=== PATIENT | female | born 1970 | race Caucasian/White ===

== ENCOUNTER → 2017-06-23 11:45 | Outpatient (CLI) | payer OTHER, SELFPAY ==
[2017-06-23 13:02] LABS: Hemoglobin A1C 7.6 % (0.0-7.0)
[2017-06-24 08:59] LABS: Alanine Aminotransferase 24 U/L (12-78); Albumin Level 4.4 gm/dL (3.4-5.0); Albumin/Globulin Ratio 1.3 (1.1-1.8); Alkaline Phosphatase 92 U/L (46-116); Anion Gap 15.7 mEq/L (5-15); Aspartate Amino Transferase 7 U/L (15-37); Bilirubin,Total 0.5 mg/dL (0.2-1.0); Blood Urea Nitrogen 21 mg/dL (7-18); Calcium 9.1 mg/dL (8.5-10.1); Carbon Dioxide 25 mmol/L (21.0-32.0); Chloride 102 mmol/L (98-107); Creatinine,Serum 0.94 mg/dL (0.55-1.02); Estimated Glomerular Filt Rate 64 ml/min (>60); GFR (African American) 77 ML/MIN (>60); Globulin 3.3 gm/dl (1.3-3.2); Glucose 191 mg/dL (74-106); Potassium 4.7 mmoL/L (3.5-5.1); Sodium 138 mmol/L (136-145); Total Protein,Serum 7.7 gm/dL (6.4-8.2)
== END ==
PROVIDERS: Visit Provider Internal Medicine Adolescent Medicine
DX: E11.9 Type 2 diabetes mellitus without complications (principal); R60.9 Edema, unspecified
CPT/HCPCS: 36415; 80053; 83036

== ENCOUNTER → 2018-02-19 08:58 | Outpatient (CLI) | payer OTHER, SELFPAY ==
[2018-02-19 11:06] LABS: Creatinine,Urine Random 52 mg/dL (20-320)
[2018-02-19 11:17] LABS: Hemoglobin A1C 6.7 % (0.0-7.0)
[2018-02-19 12:55] LABS: Alanine Aminotransferase 22 U/L (12-78); Albumin Level 3.8 gm/dL (3.4-5.0); Albumin/Globulin Ratio 1.2 (1.1-1.8); Alkaline Phosphatase 78 U/L (46-116); Anion Gap 13.4 mEq/L (5-15); Aspartate Amino Transferase 14 U/L (15-37); Bilirubin,Total 0.6 mg/dL (0.2-1.0); Blood Urea Nitrogen 15 mg/dL (7-18); Calcium 9.3 mg/dL (8.5-10.1); Carbon Dioxide 28 mmol/L (21.0-32.0); Chloride 103 mmol/L (98-107); Chol/HDL Ratio 4.3 (1-3.5); Cholesterol 189 mg/dL (140-200); Creatinine,Serum 0.53 mg/dL (0.55-1.02); Estimated Glomerular Filt Rate 123 ml/min (>60); GFR (African American) 149 ML/MIN (>60); Globulin 3.1 gm/dl (1.3-3.2); Glucose 140 mg/dL (74-106); HDL Cholesterol 44 mg/dL (29-89); LDL Cholesterol 110 mg/dL (0-130); Potassium 4.4 mmoL/L (3.5-5.1); Sodium 140 mmol/L (136-145); Total Protein,Serum 6.9 gm/dL (6.4-8.2); Triglycerides 173 mg/dL (30-200); VLDL Cholesterol 35 mg/dL (0-40)
[2018-02-21 04:56] LABS: Microalbumin, Urine 29.6 ug/mL (Not Estab.)
== END ==
PROVIDERS: Visit Provider Nurse Practitioner Family
DX: E78.5 Hyperlipidemia, unspecified (principal); E11.9 Type 2 diabetes mellitus without complications
CPT/HCPCS: 36415; 80053; 80061; 82043; 82570; 83036

== ENCOUNTER → 2018-04-07 09:45 | Outpatient (CLI) | payer OTHER, SELFPAY ==
[2018-04-08 16:16] LABS: Estradiol 162.2 pg/mL (.); FSH 18.7 mIU/mL (.); LH 24.3 mIU/mL (.)
== END ==
PROVIDERS: Visit Provider Nurse Practitioner Obstetrics & Gynecology
DX: N95.1 Menopausal and female climacteric states (principal)
CPT/HCPCS: 36415; 82670; 83001; 83002

== ENCOUNTER → 2018-09-17 10:12 | Outpatient (CLI) | payer OTHER, SELFPAY ==
[2018-09-17 10:55] LABS: Hemoglobin A1C 7.7 % (0.0-7.0)
== END ==
PROVIDERS: Visit Provider Nurse Practitioner Family
DX: E78.5 Hyperlipidemia, unspecified (principal); E11.9 Type 2 diabetes mellitus without complications; R60.9 Edema, unspecified
CPT/HCPCS: 36415; 83036

== ENCOUNTER → 2019-01-17 11:56 | Outpatient (CLI) | payer OTHER, SELFPAY ==
[2019-01-17 12:38] LABS: Basophils % 0.7 % (0.1-2.0); Eosinophils # 0.1 K/mm3 (0.0-0.4); Eosinophils % 1.1 % (0.1-12.0); Hematocrit 46.1 % (37.0-47.0); Hemoglobin 14.7 g/dL (12.2-16.2); Lymphocytes # 1.5 K/mm3 (0.7-4.5); Lymphocytes % 24.2 % (10-50); Mean Corpuscular HGB Conc 31.8 g/dL (31.8-35.4); Mean Corpuscular Hemoglobin 29.7 pg (27.0-31.2); Mean Corpuscular Volume 93.6 fl (81-99); Mean Platelet Volume 8.2 fl (7.4-10.4); Monocytes # 0.3 K/mm3 (0.1-1.0); Monocytes % 4.8 % (1.7-9.3); Neutrophils # 4.3 K/mm3 (1.8-7.8); Neutrophils % 69.2 % (37.0-80.0); Platelet Count 193 K/mm3 (142-424); Red Blood Count 4.93 M/mm3 (4.20-5.40); Red Cell Distribution Width 13.5 % (11.5-17.5); White Blood Count 6.2 K/mm3 (4.8-10.8)
[2019-01-17 14:38] LABS: Alanine Aminotransferase 16 U/L (12-78); Albumin Level 4.1 gm/dL (3.4-5.0); Albumin/Globulin Ratio 1.2 (1.1-1.8); Alkaline Phosphatase 91 U/L (46-116); Anion Gap 13.4 mEq/L (5-15); Aspartate Amino Transferase 6 U/L (15-37); Bilirubin,Total 0.6 mg/dL (0.2-1.0); Blood Urea Nitrogen 15 mg/dL (7-18); Calcium 9.4 mg/dL (8.5-10.1); Carbon Dioxide 28 mmol/L (21.0-32.0); Chloride 103 mmol/L (98-107); Chol/HDL Ratio 5.3 (1-3.5); Cholesterol 201 mg/dL (140-200); Creatinine,Serum 0.62 mg/dL (0.55-1.02); Estimated Glomerular Filt Rate 102 ml/min (>60); GFR (African American) 124 ML/MIN (>60); Globulin 3.3 gm/dl (1.3-3.2); Glucose 146 mg/dL (74-106); HDL Cholesterol 38 mg/dL (29-89); LDL Cholesterol 126 mg/dL (0-130); Potassium 4.4 mmoL/L (3.5-5.1); Sodium 140 mmol/L (136-145); Thyroid Stimulating Hormone 1.02 uIU/ml (0.358-3.740); Total Protein,Serum 7.4 gm/dL (6.4-8.2); Triglycerides 186 mg/dL (30-200); VLDL Cholesterol 37 mg/dL (0-40)
[2019-01-18 13:27] LABS: Creatinine, Urine 67.8 mg/dL (Not Estab.); Microalbumin, Urine 44.1 ug/mL (Not Estab.)
[2019-01-19 16:38] LABS: Hemoglobin A1C 7.5 % (0.0-7.0)
== END ==
PROVIDERS: Nurse Practitioner Family; Visit Provider Internal Medicine Adolescent Medicine
DX: E78.5 Hyperlipidemia, unspecified (principal); E11.9 Type 2 diabetes mellitus without complications; R60.9 Edema, unspecified; R80.9 Proteinuria, unspecified; Z79.84 Long term (current) use of oral hypoglycemic drugs
CPT/HCPCS: 36415; 80053; 80061; 82043; 82570; 83036; 84443; 85025

== ENCOUNTER → 2019-05-15 13:10 | Outpatient (CLI) | payer OTHER, SELFPAY ==
[2019-05-15 13:57] LABS: Hemoglobin A1C 7.7 % (0.0-7.0)
[2019-05-15 15:05] LABS: Alanine Aminotransferase 13 U/L (12-78); Albumin Level 4.1 gm/dL (3.4-5.0); Albumin/Globulin Ratio 1.4 (1.1-1.8); Alkaline Phosphatase 85 U/L (46-116); Anion Gap 17.3 mEq/L (5-15); Aspartate Amino Transferase 8 U/L (15-37); Bilirubin,Total 0.6 mg/dL (0.2-1.0); Blood Urea Nitrogen 15 mg/dL (7-18); Calcium 9.4 mg/dL (8.5-10.1); Carbon Dioxide 26 mmol/L (21.0-32.0); Chloride 105 mmol/L (98-107); Chol/HDL Ratio 4.6 (1-3.5); Cholesterol 215 mg/dL (140-200); Creatinine,Serum 0.79 mg/dL (0.55-1.02); Estimated Glomerular Filt Rate 77 ml/min (>60); GFR (African American) 94 ML/MIN (>60); Glucose 180 mg/dL (74-106); HDL Cholesterol 47 mg/dL (29-89); LDL Cholesterol 132 mg/dL (0-130); Potassium 4.3 mmoL/L (3.5-5.1); Sodium 144 mmol/L (136-145); Total Protein,Serum 7.1 gm/dL (6.4-8.2); Triglycerides 181 mg/dL (30-200); VLDL Cholesterol 36 mg/dL (0-40)
== END ==
PROVIDERS: Visit Provider Nurse Practitioner Family
DX: E11.29 Type 2 diabetes mellitus with other diabetic kidney complication (principal); E78.5 Hyperlipidemia, unspecified; Z79.84 Long term (current) use of oral hypoglycemic drugs
CPT/HCPCS: 36415; 80053; 80061; 83036

== ENCOUNTER → 2019-11-18 09:54 | Outpatient (CLI) | payer OTHER, SELFPAY ==
[2019-11-18 11:20] LABS: Chloride 105 mmol/L (98-107); Potassium 4.5 mmoL/L (3.5-5.1); Sodium 139 mmol/L (136-145)
[2019-11-18 11:23] LABS: Alanine Aminotransferase 16 U/L (12-78); Albumin Level 4.2 g/dl (3.5-5.0); Albumin/Globulin Ratio 1.8 (1.1-1.8); Alkaline Phosphatase 81 U/L (38-126); Anion Gap 14.5 mEq/L (5-15); Aspartate Amino Transferase 19 U/L (14-36); Bilirubin,Total 0.9 mg/dl (0.2-1.3); Blood Urea Nitrogen 16 mg/dl (7-17); Calcium 9.6 mg/dl (8.4-10.2); Carbon Dioxide 24 mmol/L (22.0-30.0); Cholesterol 112 mg/dl (140-200); Estimated Glomerular Filt Rate 106 ml/min (>60); GFR (African American) 128 ML/MIN (>60); Globulin 2.4 g/dL (1.3-3.2); Glucose 150 mg/dl (74-100); Total Protein,Serum 6.6 g/dl (6.3-8.2); Triglycerides 121 mg/dl (30-150); VLDL Cholesterol 24 mg/dL (0-40)
[2019-11-18 11:24] LABS: Chol/HDL Ratio 2.5 (1-3.5); HDL Cholesterol 45 mg/dl (40-60)
[2019-11-18 11:27] LABS: Basophils % 0.6 % (0.1-2.0); Eosinophils # 0.1 K/mm3 (0.0-0.4); Eosinophils % 1.5 % (0.1-12.0); Hematocrit 43.5 % (37.0-47.0); Hemoglobin 15.3 g/dL (12.2-16.2); Lymphocytes # 1.5 K/mm3 (0.7-4.5); Lymphocytes % 25.8 % (10-50); Mean Corpuscular HGB Conc 35.2 g/dL (31.8-35.4); Mean Corpuscular Hemoglobin 31.3 pg (27.0-31.2); Mean Platelet Volume 8.2 fl (7.4-10.4); Monocytes # 0.2 K/mm3 (0.1-1.0); Monocytes % 4.1 % (1.7-9.3); Neutrophils # 3.9 K/mm3 (1.8-7.8); Neutrophils % 68.1 % (37.0-80.0); Platelet Count 181 K/mm3 (142-424); Red Blood Count 4.89 M/mm3 (4.20-5.40); Red Cell Distribution Width 14.6 % (11.5-17.5); White Blood Count 5.7 K/mm3 (4.8-10.8)
[2019-11-18 11:29] LABS: Creatinine,Urine Random 73 mg/dL (Not Estab.)
[2019-11-18 11:32] LABS: Microalbumin/Creatinine Ratio 62.6
[2019-11-18 11:34] LABS: Direct LDL Cholesterol 50.13 mg/dL (100-129)
[2019-11-18 12:09] LABS: Hemoglobin A1C 7.5 % (4.0-6.0)
== END ==
PROVIDERS: Visit Provider Nurse Practitioner Family
DX: E11.29 Type 2 diabetes mellitus with other diabetic kidney complication (principal); R80.9 Proteinuria, unspecified; Z72.0 Tobacco use; Z79.84 Long term (current) use of oral hypoglycemic drugs
CPT/HCPCS: 36415; 80053; 80061; 82043; 82570; 83036; 85025

== ENCOUNTER → 2019-11-23 11:49 | Outpatient (CLI) | payer OTHER, SELFPAY | PROVIDERS: Visit Provider Nurse Practitioner Family | DX: Z03.818 Encounter for observation for suspected exposure to other biological agents ruled out (principal); J02.9 Acute pharyngitis, unspecified | CPT/HCPCS: U0003 ==

== ENCOUNTER → 2020-07-30 07:14 | Outpatient (CLI) | payer OTHER, SELFPAY ==
[2020-07-30 07:32] LABS: Hemoglobin A1C 8.7 % (4.0-6.0)
== END ==
PROVIDERS: Visit Provider Nurse Practitioner Family
DX: E11.29 Type 2 diabetes mellitus with other diabetic kidney complication (principal); Z79.84 Long term (current) use of oral hypoglycemic drugs
CPT/HCPCS: 36415; 83036

== ENCOUNTER 2020-12-19 06:42 | Emergency (ER) | payer OTHER, SELFPAY ==
[2020-12-19] VITALS (10 sets, daily range): BP systolic 114–150; BP diastolic 65–82; PULSE 78–97; RESP 15–20; TEMP 36.6–37.1; O2SAT 97–100; BMI 30.7
[2020-12-19 07:01] LABS: Influenza A, PCR Not Detected (NotDetected); Influenza B, PCR Not Detected (NotDetected)
--- NOTE | 2020-12-19 07:03 | HMH.EDGENADL ---
ED Disposition Clinical Impression: COVID-19 Disposition: Home, Self-Care Condition on Discharge: Good Referrals: Shashank Bush MD [Primary Care Provider] - - Critical Care Critical Care Time: No Attestation: On , the high probability of a clinically significant, sudden or life threatening deterioration of the following system(s) required my full and direct attention, intervention and personal management. The time I documented below is in addition to time spent performing reported procedures but includes the following listed in this critical care notation. Medical Decision Making - Medical Records Medical records reviewed: Yes: I reviewed the patient's medical records. - Elieser Inquiry Pt receiving controlled substance: No Vital Signs: 12/19/20 06:44 Temperature 98.7 F Temperature Source Oral Pulse Rate [Left Radial] 90 Respiratory Rate 16 Blood Pressure [Right Arm] 125/71 Blood Pressure Mean [Right Arm] 89 Blood Pressure Source [Right Arm] Automatic Cuff Blood Pressure Position [Right Arm] Sitting 02 Sat by Pulse Oximetry 99 Oxygen Delivery Method Room Air - Lab Data Lab Results 12/19/20 06:45: SARS-CoV-2 (PCR) Detected A, Influenza A Untype (PCR) Not detected, Influenza Type B (PCR) Not detected Orders (Tests/Meds): ED MEDICATIONS Discontinued Medications Generic Name Dose Route Start Last Admin Trade Name Freq PRN Reason Stop Dose Admin Ketorolac Tromethamine 30 mg 12/19/20 06:54 12/19/20 07:17 Ketorolac 30mg/Ml Vial IM 12/19/20 06:55 30 mg ONCE ONE Administration Medical Decision Narrative: 50-year-old female who presents with upper respiratory symptoms and a headache with a positive Covid exposure through her . Patient is presenting for a Covid test and treatment for her headache. She was given 30 mg IM Toradol and a rapid Covid test. Vitals are stable she is not hypoxic and not in respiratory distress. Patient is Covid positive. She was given the option of the antibiotic treatment and accepted and will be discharged following this treatment. General Adult HPI - General Stated complaint: sinur congestion,DAVIES,body aches all over Time Seen by Provider: 12/19/20 07:03 Source of Information: Patient Limitations: No Limitations - History of Present Illness HPI narrative: 50-year-old female who presents with headache congestion rhinorrhea, sore throat, productive cough with a who is Covid positive. Patient states she has been symptomatic for 2 days. She is vaccinated against COVID-19. She denies chest pain or shortness of breath. 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 She took 1 tablet of Advil cold and sinus this morning. Headache is mild 4 out of 10. No nausea vomiting or diarrhea. She is fatigued but is having no body aches or fever - Related Data Home Medications Medication Instructions Recorded Confirmed bupropion HCl 150 mg tablet,12 hr 150 mg PO DAILY 03/09/18 01/30/20 sustained-release dapagliflozin 5 mg tablet 5 mg PO DAILY 03/09/18 01/30/20 metformin 500 mg tablet 500 mg PO BID 03/09/18 01/30/20 simvastatin 40 mg tablet 40 mg PO QHS 03/09/18 01/30/20 sitagliptin 100 mg tablet 100 mg PO DAILY 03/09/18 01/30/20 lisinopril 5 mg tablet PO #90 tab 02/15/19 01/30/20 Previous Rx's Medication Instructions Recorded fluconazole 150 mg tablet 150 mg PO DAILY 10 Days #10 tab 02/15/19 terconazole 0.8 % vaginal cream 1 appful VAGINAL QHS 3 Days #20 g 02/15/19 Fluticasone Propionate [Flonase 1 spr NS BID 10 Days #1 bottle 02/18/19 50mcg nasal spray 16gm] methylprednisolone 4 mg tablets in See Rx Instructions PO PER PKG DIR 11/24/19 a dose pack #21 tab doxycycline hyclate 100 mg capsule 100 mg PO BID #20 cap 02/27/20 methylprednisolone 4 mg tablets in See Rx Instructions PO PER PKG DIR 02/27/20 a dose pack #21 tab Allergi
--- NOTE | 2020-12-19 07:08 | PC.NURSE ---
Pt placed in COVID isolation precautions upon arrival
[2020-12-19 07:25] LABS: Coronavirus 19, PCR Detected (NotDetected)
== END 2020-12-19 10:02 | disposition home or self-care (01) ==
PROVIDERS: Emergency Provider Student in an Organized Health Care Education/Training Program; PCP Internal Medicine Adolescent Medicine
DX: U07.1 COVID-19 (principal); F33.1 Major depressive disorder, recurrent, moderate; E11.9 Type 2 diabetes mellitus without complications; E78.5 Hyperlipidemia, unspecified; F17.210 Nicotine dependence, cigarettes, uncomplicated; Z79.899 Other long term (current) drug therapy
CPT/HCPCS: 96365; 96372; 99282; U0003

== ENCOUNTER → 2021-01-13 10:38 | Outpatient (CLI) | payer OTHER, SELFPAY ==
[2021-01-13 11:20] LABS: Basophils # 0.1 K/mm3 (0-0.2); Basophils % 1.1 % (0.1-2.0); Eosinophils # 0.2 K/mm3 (0.0-0.4); Eosinophils % 2.2 % (0.1-12.0); Hematocrit 44.8 % (37.0-47.0); Lymphocytes # 1.7 K/mm3 (0.7-4.5); Lymphocytes % 24.5 % (10-50); Mean Corpuscular HGB Conc 33.4 g/dL (31.8-35.4); Mean Corpuscular Hemoglobin 32.3 pg (27.0-31.2); Mean Corpuscular Volume 96.9 fl (81-99); Mean Platelet Volume 8.6 fl (7.4-10.4); Monocytes # 0.3 K/mm3 (0.1-1.0); Monocytes % 4.7 % (1.7-9.3); Neutrophils # 4.8 K/mm3 (1.8-7.8); Neutrophils % 67.5 % (37.0-80.0); Platelet Count 179 K/mm3 (142-424); Red Blood Count 4.63 M/mm3 (4.20-5.40); Red Cell Distribution Width 13.7 % (11.5-17.5); White Blood Count 7.1 K/mm3 (4.8-10.8)
[2021-01-13 11:47] LABS: Erythrocyte Sedimentation Rate 17 mm/hr (0-30)
[2021-01-13 12:12] LABS: Chloride 110 mmol/L (98-107); Potassium 4.6 mmoL/L (3.5-5.1); Sodium 141 mmol/L (136-145)
[2021-01-13 12:15] LABS: Alanine Aminotransferase 20 U/L (12-78); Albumin Level 3.9 g/dl (3.5-5.0); Albumin/Globulin Ratio 1.6 (1.1-1.8); Alkaline Phosphatase 83 U/L (38-126); Anion Gap 11.6 mEq/L (5-15); Aspartate Amino Transferase 19 U/L (14-36); Bilirubin,Total 0.5 mg/dl (0.2-1.3); Blood Urea Nitrogen 14 mg/dl (7-17); Calcium 9.3 mg/dl (8.4-10.2); Carbon Dioxide 24 mmol/L (22.0-30.0); Estimated Glomerular Filt Rate 88 ml/min (>60); GFR (African American) 107 ML/MIN (>60); Globulin 2.5 g/dL (1.3-3.2); Glucose 161 mg/dl (74-100); Total Protein,Serum 6.4 g/dl (6.3-8.2)
[2021-01-13 12:21] LABS: C-Reactive Protein 0.9 mg/L (0-4)
[2021-01-13 12:52] LABS: Hemoglobin A1C 6.9 % (4.0-6.0)
== END ==
PROVIDERS: Visit Provider Nurse Practitioner Family
DX: E11.29 Type 2 diabetes mellitus with other diabetic kidney complication (principal); R21 Rash and other nonspecific skin eruption; Z79.84 Long term (current) use of oral hypoglycemic drugs
CPT/HCPCS: 36415; 80053; 83036; 85025; 85651; 86140

== ENCOUNTER 2021-01-17 15:20 | Outpatient (CLI) | payer OTHER, SELFPAY ==
[2021-01-17 16:03] VITALS: BP 115/71; PULSE 84; RESP 17; TEMP 36.6; O2SAT 96
== END 2021-01-17 16:04 | disposition home or self-care (01) ==
LOC: INF 15:20
PROVIDERS: PCP Internal Medicine Adolescent Medicine; Visit Provider Obstetrics & Gynecology
DX: R21 Rash and other nonspecific skin eruption (principal)
CPT/HCPCS: 96372; J1040

== ENCOUNTER → 2021-02-26 15:02 | Outpatient (CLI) | payer OTHER, SELFPAY ==
--- NOTE | 2021-02-26 15:04 | XR_ITS ---
PROCEDURE: XR FOOT WT BEARING RT 3V CLINICAL INDICATION: Right 5th toe pain, erythema COMPARISON: No exams were available for comparison FINDINGS: No fracture or dislocation. No lytic or blastic change. There is normal mineralization. The joint spaces are well-preserved. No significant degenerative/arthritic changes. No erosive changes evident. Other findings:Borderline pes planus. Prominent calcaneal spur. IMPRESSION: No acute findings. Borderline pes planus with prominent calcaneal spur Dictated by: Alexandro Joyce MD 02/26/2021 15:32 Alexandro Joyce MD in [place] 02/26/2021 15:32
--- NOTE | 2021-02-26 15:04 | XR_ITS ---
PROCEDURE: XR TOE RT MIN 2V CLINICAL INDICATION: right 5th toe pain, redness COMPARISON: No exams were available for comparison FINDINGS: No fracture or dislocation. No lytic or blastic change. There is normal mineralization. The joint spaces are well-preserved. No significant degenerative/arthritic changes. No erosive changes evident. Other findings:There is mild diffuse soft tissue swelling. No bony destructive process apparent. IMPRESSION: Soft tissue swelling otherwise negative Dictated by: Alexandro Joyce MD 02/26/2021 15:30 Alexandro Joyce MD in [facility] 02/26/2021 15:30
== END ==
PROVIDERS: PCP Internal Medicine Adolescent Medicine; Visit Provider Podiatrist
DX: L03.031 Cellulitis of right toe (principal); S90.424A Blister (nonthermal), right lesser toe(s), initial encounter; M79.674 Pain in right toe(s)
CPT/HCPCS: 73630; 73660

== ENCOUNTER → 2021-04-08 14:24 | Outpatient (POV) | payer OTHER, SELFPAY | PROVIDERS: Visit Provider Dermatology | DX: Z00.00 Encounter for general adult medical examination without abnormal findings (principal) ==

== ENCOUNTER → 2021-06-14 10:10 | Outpatient (CLI) | payer OTHER, SELFPAY ==
[2021-06-14 11:33] LABS: Chloride 106 mmol/L (98-107); Potassium 4.6 mmoL/L (3.5-5.1); Sodium 138 mmol/L (136-145)
[2021-06-14 11:36] LABS: Alanine Aminotransferase 29 U/L (12-78); Albumin Level 4.3 g/dl (3.5-5.0); Alkaline Phosphatase 88 U/L (38-126); Anion Gap 10.6 mEq/L (5-15); Aspartate Amino Transferase 25 U/L (14-36); Bilirubin,Total 1.1 mg/dl (0.2-1.3); Blood Urea Nitrogen 15 mg/dl (7-17); Calcium 8.9 mg/dl (8.4-10.2); Carbon Dioxide 26 mmol/L (22.0-30.0); Chol/HDL Ratio 2.1 (1-3.5); Cholesterol 94 mg/dl (140-200); Estimated Glomerular Filt Rate 105 ml/min (>60); GFR (African American) 127 ML/MIN (>60); Globulin 2.2 g/dL (1.3-3.2); Glucose 127 mg/dl (74-100); HDL Cholesterol 45 mg/dl (40-60); Total Protein,Serum 6.5 g/dl (6.3-8.2); Triglycerides 76 mg/dl (30-150); VLDL Cholesterol 15 mg/dL (0-40)
[2021-06-14 11:47] LABS: Direct LDL Cholesterol 36.63 mg/dL (100-129)
[2021-06-14 11:49] LABS: Hemoglobin A1C 7.5 % (4.0-6.0)
[2021-06-14 14:08] LABS: Microalbumin/Creatinine Ratio 50.3
[2021-06-14 14:09] LABS: Creatinine,Urine Random 57 mg/dL (Not Estab.)
== END ==
PROVIDERS: PCP Internal Medicine Adolescent Medicine; Referring Provider Nurse Practitioner Family; Visit Provider Internal Medicine Adolescent Medicine
DX: E11.29 Type 2 diabetes mellitus with other diabetic kidney complication (principal); E78.5 Hyperlipidemia, unspecified; R80.9 Proteinuria, unspecified; Z79.84 Long term (current) use of oral hypoglycemic drugs
CPT/HCPCS: 36415; 80053; 80061; 82043; 82570; 83036

== ENCOUNTER → 2021-07-01 09:39 | Outpatient (CLI) | payer OTHER, SELFPAY ==
--- NOTE | 2021-07-01 09:41 | MM_ITS ---
PROCEDURE INFORMATION: Exam: MG Bilateral Screening 3D Mammography Exam date and time: 07/01/2021 9:41 AM Age: 51 years old Clinical indication: Encounter for screening mammogram for malignant neoplasm of breast TECHNIQUE: Imaging protocol: Bilateral Screening tomosynthesis and 2D mammography including computer-aided detection (CAD) when performed. COMPARISON: 1. MG DMSB DIG MAMM-SCREEN JANNET 05/23/2015 3:15 PM 2. MG DMDXUAVR DIG MAMM-DX UNIL ADD VIEWS-RT 04/28/2012 3:15 PM FINDINGS: MAMMOGRAPHY: Breast composition: The breast tissue is composed of scattered areas of fibroglandular density. Mass: None. Architectural distortion: None. Calcifications: No suspicious calcifications. Asymmetric density: None. Skin thickening: None. Axillary adenopathy: None. IMPRESSION: No mammographic evidence of malignancy. Annual screening is recommended unless otherwise clinically indicated. ASSESSMENT: BI-RADS Category 1: Negative
--- NOTE | 2021-07-01 15:22 | CT_ITS ---
FINAL REPORT CLINICAL HISTORY: PERSONNAL HISTORY OF TABACCO USE FINDINGS: Low-Dose Chest CT CTDI vol (mGy): 2.90 DLP (mGy-cm): 90.38 Axial images were obtained from the lung apex to the mid abdomen by computed tomography. Low-dose protocol was utilized. FINDINGS: CHEST: There is no axillary adenopathy. There is no hilar or mediastinal adenopathy. The heart is proper size. There are moderate to severe coronary artery calcifications. There is no pericardial or pleural effusion. Limited images of the upper abdomen demonstrate postoperative changes from cholecystectomy.. Lung window images demonstrate no suspicious infiltrate or nodule. IMPRESSION: S modifier: Moderate to severe coronary artery calcification. No suspicious infiltrate or nodule is identified. Lung RADS category 1S. Recommend 12 month follow-up low-dose chest CT. Reviewed, Interpreted and Dictated by Kehinde Murray III, MD Transcribed by Miriam Biggs Authenticated by Kehinde Murray III, MD on 07/01/2021 04:41:32 PM [facility]
== END ==
PROVIDERS: PCP Internal Medicine Adolescent Medicine; Visit Provider Nurse Practitioner Family
DX: Z87.891 Personal history of nicotine dependence (principal); Z12.2 Encounter for screening for malignant neoplasm of respiratory organs; Z12.31 Encounter for screening mammogram for malignant neoplasm of breast
CPT/HCPCS: 71271; 77063; 77067

== ENCOUNTER → 2021-07-17 06:15 | Outpatient (CLI) | payer OTHER, SELFPAY ==
--- NOTE | 2021-07-17 | CA_ITS ---
APPROVED REPORT Exam: Pharmacologic Technologist: Rosalina Rodriguez, Ht: 5 ft 6 in Wt: 189 lbs BSA: 1.95 m2 HR: 79 bpm BP: 115/74 mmHg Rhythm: NSR, RIGHTWARD AXIS Medical History Medical History: Hyperlipidemia, Diabetes Medications: Metformin,,,,, Flonase,,,,, Crestor,,,,, Farxiga,,,,, Ozempic,,,,, WELLBUTRINE,,,,, Allergies: No known drug allergies Cardiac Risk Factors: Hyperlipidemia, Diabetes Stress Test Details Test: LEXISCAN HR Resting HR: 80 bpm Max Heart Rate (APMHR): 168.382294 bpm Max HR Achieved: 106 bpm Target HR (85% APMHR): 142.230995 bpm % of APMHR: 63.10 Recovery HR: 89 bpm BP Resting BP: 115.0/74.0 mmHg Max BP: 138.0/77.0 mmHg Recovery BP: 130.0/71.0 mmHg ECG Resting ECG: NSR, RIGHTWARD AXIS Clinical Exercise duration: 04:01 min Highest Stage Achieved: Exercise capacity: 1.0 METs Stress ECG Conclusion SOA, HEAD DISCOMFORT. NO CP. NO SIGNIFICANT CHANGES. UNREMARKABLE LEXISCAN MYOVIEW IMAGES REPORTED SEPARATELY Test Summary REST 04:27 . . 80 . 115/ 74 . . Stage 1 01:00 . . 104 . . . . Stage 2 01:00 . . 102 . 136/ 80 . . Stage 3 01:00 . . 97 . 138/ 77 . . Stage 4 01:00 . . 93 . 124/ 74 . . Stage 4 01:01 . . 93 . 124/ 74 . Stop exercise at 04:01 RECOVERY 01:00 . . 95 . . . . RECOVERY 02:00 . . 93 . 126/ 73 . . RECOVERY 03:00 . . 89 . 130/ 71 . . RECOVERY 03:14 . . 92 . 130/ 71 . . Electronically signed by : Andrzej Hernandez MD 07/18/2021 13:24:06
--- NOTE | 2021-07-17 06:46 | NM_ITS ---
APPROVED REPORT Exam: Nuclear Stress Test Indication: fatigue Patient Location: Outpatient Stress Tech: Rosalina Rodriguez ND Tech:Ivett BarnesNEETA RT(R)(N) Ht: 5 ft 6 in Wt: 189 lbs Bra Size: 42c HR: 79 bpm BP: 115/74 mmHg BSA: 1.95 m2 BMI: 30.5 Procedure: Patient received a 0.4 mg of intravenous Lexiscan, resting heart rate 79 bpm, resting blood pressure 115/74 mmHg, with Lexiscan maximum heart rate achived was 104 bpm which is Less than 85 % of the maximum predicted heart rate and blood pressure was 136/80 mmHg. With Lexiscan, patient denied any complaint of chest pain. Electrocardiogram Resting electrocardiogram shows sinus rhythm, with Lexiscan there is less than 1.[address] segment depression noted from the baseline EKG. The EKG portion of the Lexiscan is nondiagnostic. Cardiac Stress and Resting SPECT Images: Cardiac Stress and Resting SPECT images were obtained using technetium 99m Myoview 31.1 mCi stress and 10.95 mCi at rest. Gated SPECT for analysis of segmental wall motion and calculation of the ejection fraction also done. Cardiac stress and resting SPECT images show uniform myocardial activity without segmental perfusion abnormality, computer derived ejection fraction is 56% with no regional wall motion abnormality, right ventricle is normal size and contractility. Conclusion: 1. The EKG portion of the Lexiscan Myoview is nondiagnostic. 2. No scintigraphic evidence of reversible ischemia seen, computer ejection fraction 56% with no regional wall motion abnormality, right ventricle is normal size and contractility. 3. Normal Lexiscan Myoview study. Electronically signed by : Andrzej Hernandez MD 07/18/2021 13:26:02
== END ==
PROVIDERS: PCP Internal Medicine Adolescent Medicine; Visit Provider Nurse Practitioner Family
DX: I25.10 Atherosclerotic heart disease of native coronary artery without angina pectoris (principal)
CPT/HCPCS: 78452; 93017; A9502; J2785

== ENCOUNTER 2021-10-15 07:59 | Emergency (ER) | payer OTHER, SELFPAY ==
[2021-10-15 08:05] VITALS: BP 119/68; PULSE 91; RESP 18; TEMP 36.8; O2SAT 98; BMI 30.9
[2021-10-15 08:18] VITALS: BP 119/68; PULSE 91; RESP 18; TEMP 36.8; O2SAT 98
--- NOTE | 2021-10-15 08:24 | HMH.EDUTC ---
[facility] [place] Clinical Impression: COVID-19 Disposition: Home, Self-Care Condition on Discharge: Good Instructions: DI for COVID-19 (Suspected or Confirmed ), Preventing the Spread of Coronavirus Discharge Instructions Additional Instructions: *Monitor Temp, Over the counter Motrin or Tylenol as directed/as needed Tylenol every 4 hours and Motrin every 6 hours (as long as your family doctor has told you that you can take it) for fever or pain. and straight to ER if unable to lower temp less than 101.0 after medication given *Warm salt water gargles may help to soothe the throat *Throat Lozenges *Warm fluids like tea with honey may help to soothe the throat *Sleep elevated *Humidifier/Vaporizer *Flonase 2 sprays in each nostril daily but be aware that it may take 2-3 days before you notice improvement *Bromfed may cause drowsiness. Know how it effects you (your child) before driving, caring for small child, or sending your child to school. Not other antihistamines/allergy medications while taking bromfed Your throat swab was sent for culture. Those results are typically sent to your primary care. Be sure to follow up in 2-3 days with your family doctor/primary care physician if no improvement so they can review those result and treat if necessary. If you don?t have a primary care doctor, I recommend you get one but in the mean time, you will have to return to a walk in clinic Follow up IMMEDIATELY for new or worsening symptoms or no Noticeable improvement over the next 48-72 hours. 911 for difficulty breathing or swallowing Make sure to take your Vitamins Vit. C Vit D and Zinc if you can take them Prescriptions: Benzonatate [Benzonatate 100mg cap] 100 mg PO Q8HP PRN #30 cap PRN Reason: Cough Transmission Status: Received by [facility] Azithromycin [Z-Shalom 250mg Tab] 250 mg PO DIRECTED #6 tab Transmission Status: Received by [facility] Referrals: Rossana Charles APRN [Primary Care Provider] - As needed Forms: Work/School Release Time of Disposition: 09:39 Medical Decision Making - Elieser Inquiry Pt receiving controlled substance: No Elieser was queried for this patient: No Vital Signs: 10/15/21 08:05 10/15/21 08:18 Temperature 98.3 F 98.3 F Temperature Source Oral Pulse Rate 91 H Pulse Rate [Left Brachial] 91 H Respiratory Rate 18 18 Blood Pressure 119/68 Blood Pressure [Left Arm] 119/68 Blood Pressure Mean [Left Arm] 85 Blood Pressure Source [Left Arm] Automatic Cuff Blood Pressure Position [Left Arm] Sitting 02 Sat by Pulse Oximetry 98 Oxygen Delivery Method Room Air - Lab Data Lab results reviewed: Yes: I reviewed the patient's lab results. Lab Results 10/15/21 08:10: Group A Strep Rapid Negative 10/15/21 08:10: SARS-CoV-2 (PCR) Detected A, Influenza A Untype (PCR) Not detected, Influenza Type B (PCR) Not detected Orders (Tests/Meds): ORDERS Category Date Time Status Strep Screen Confirmation Stat Micro 10/15/21 08:10 Received Medical Decision Narrative: Patient still awaiting rapid flu and COVID test results [facility] [place] - General Stated complaint: runny nose, cough, bodyaches Time Seen by Provider: 10/15/21 08:24 Mode of Arrival: Ambulatory Source of Information: Patient Limitations: No Limitations Description of Symptoms (Recalled from Triage Doc. by RN): PATIENT C/O COUGH, BODY ACHES, HEADACHE, AND SORE THROAT SINCE YESTERDAY HEENT Symptoms (Recalled from RN notes): Yes Resp Symptoms (Recalled from RN notes): Yes Skin Symptoms (Recalled from RN notes): No MS Symptoms (Recalled from RN notes): No Functional Status (Recalled from RN notes): WNL - History of Present Illness Provider Complaint: Patient states that she started feeling bad yesterday States that she has been having sore throat, headache, body aches and chills and cough States that she was concerned with COVID denies known exposure States that at times she is coughing up so
[2021-10-15 08:43] LABS: Influenza A, PCR Not Detected (NotDetected); Influenza B, PCR Not Detected (NotDetected)
--- NOTE | 2021-10-15 08:49 | PC.NURSE ---
SPOKE WITH LAB REGARDING APPROX WAIT TIME FOR COVID TEST. STATED IT WILL BE APPROX 45 MINUTES. 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 SHE STATES IT IS OK THAT SHE WAITS FOR HERE FOR HER RESULTS. PATIENT GIVEN A BLANKET AND OFFERED WATER.
[2021-10-15 08:54] LABS: Strep Scrn Group A (Rapid) Negative (Negative)
[2021-10-15 09:28] LABS: Coronavirus 19, PCR Detected (NotDetected)
== END 2021-10-15 08:42 | disposition home or self-care (01) ==
PROVIDERS: Emergency Provider Nurse Practitioner; PCP Nurse Practitioner Family
DX: U07.1 COVID-19 (principal); R05.9 Cough, unspecified; R52 Pain, unspecified; R51.9 Headache, unspecified
CPT/HCPCS: 87430; 99212; C9803; G0463; U0003; U0005

== ENCOUNTER → 2022-06-03 07:02 | Outpatient (CLI) | payer OTHER, SELFPAY ==
--- NOTE | 2022-06-03 07:03 | CT_ITS ---
FINAL REPORT CLINICAL HISTORY: sinus pressure/right parotid growth FINDINGS: There is mucoperiosteal thickening of the sphenoid sinuses and right ethmoid air cells. The remaining paranasal sinuses are clear. The maxillary infundibulum are intact bilaterally. There is mild left nasal septal deviation. There is qing bullosa of the left middle turbinate. The mastoid air cells are intact. No acute osseous abnormality is identified. There is a soft tissue nodule in the anterior right parotid measuring 9 mm, could represent an intraparotid lymph node or salivary gland neoplasm. IMPRESSION: Sphenoid sinus and right ethmoid sinusitis, likely chronic. Soft tissue nodule in the anterior right parotid, could represent intraparotid lymph node or salivary gland neoplasm. Reviewed, Interpreted and Dictated by Kandis Jacobson MD Transcribed by Debbie De León Authenticated and [facility]
== END ==
PROVIDERS: PCP Nurse Practitioner Family; Visit Provider Otolaryngology
DX: J32.9 Chronic sinusitis, unspecified (principal)
CPT/HCPCS: 70486

== ENCOUNTER → 2022-06-12 07:50 | Outpatient (CLI) | payer OTHER, SELFPAY ==
--- NOTE | 2022-06-12 07:51 | US_ITS ---
FINAL REPORT CLINICAL HISTORY: .rt parotid fna-- nito valdez-- path present FINDINGS: Ultrasound guided right parotid nodule biopsy. HISTORY: Right parotid nodule PROCEDURE: After informed consent was obtained and a time-out was performed, the patient was prepped and draped in usual sterile fashion over the right parotid region. Utilizing local anesthesia and sterile technique with a 25-gauge needle, access to the nodule was obtained. 6 fine needle passes were made. The pathologist indicated the specimens were adequate for diagnostic purposes. The patient received no conscious sedation. The patient tolerated procedure well and left the department in good condition. IMPRESSION: Status post ultrasound guided biopsy of a right parotid nodule without immediate complication. Films reviewed , interpreted and dictated by Dr. Murray Transcribed by Nito Valdez PA-C. Reviewed, Interpreted and Dictated by Kehinde Murray III, MD Transcribed by GUDELIA Marie Authenticated and [facility]
== END ==
PROVIDERS: PCP Nurse Practitioner Family; Visit Provider Otolaryngology
DX: K11.8 Other diseases of salivary glands (principal)
CPT/HCPCS: 10005

== ENCOUNTER → 2022-07-27 09:35 | Outpatient (CLI) | payer OTHER, SELFPAY ==
--- NOTE | 2022-07-27 09:50 | MM_ITS ---
PROCEDURE INFORMATION: Exam: MG Bilateral Screening 3D Mammography Exam date and time: 07/27/2022 1:31 PM Age: 52 years old Clinical indication: Screening mammogram TECHNIQUE: Imaging protocol: Bilateral Screening tomosynthesis and 2D mammography including computer-aided detection (CAD) when performed. COMPARISON: 1. MG MM DIG SCREENING MAMM BI W/CAD 07/01/2021 9:38 AM 2. MG DMSB DIG MAMM-SCREEN JANNET 05/23/2015 3:15 PM 3. MG DMDXUAVR DIG MAMM-DX UNIL ADD VIEWS-RT 04/28/2012 3:15 PM 4. MG DMSB DIGITAL MAMM-SCREEN BILATERAL 04/13/2012 8:47 AM FINDINGS: MAMMOGRAPHY: Breast composition: There are scattered areas of fibroglandular density. Mass: None. Architectural distortion: No new or suspicious architectural distortion. Calcifications: No new or suspicious calcifications are present Asymmetric density: No new or suspicious asymmetric density is present Skin thickening: None. Axillary adenopathy: None. IMPRESSION: No mammographic evidence of malignancy. Recommend annual screening mammography unless otherwise clinically indicated. ASSESSMENT: BI-RADS category 1: Negative
== END ==
PROVIDERS: PCP Nurse Practitioner Family; Visit Provider Nurse Practitioner Family
DX: Z12.31 Encounter for screening mammogram for malignant neoplasm of breast (principal)
CPT/HCPCS: 77063; 77067

== ENCOUNTER → 2022-08-07 07:31 | Outpatient (CLI) | payer OTHER, SELFPAY ==
[2022-08-07 08:51] LABS: Basophils # 0.1 K/mm3 (0-0.2); Basophils % 1.5 % (0.1-2.0); Eosinophils # 0.1 K/mm3 (0.0-0.4); Eosinophils % 1.2 % (0.1-12.0); Hematocrit 44.1 % (37.0-47.0); Hemoglobin 14.6 g/dL (12.2-16.2); Lymphocytes # 1.6 K/mm3 (0.7-4.5); Lymphocytes % 27.7 % (10-50); Mean Corpuscular HGB Conc 33.1 g/dL (31.8-35.4); Mean Corpuscular Hemoglobin 29.8 pg (27.0-31.2); Mean Platelet Volume 8.6 fl (7.4-10.4); Monocytes # 0.3 K/mm3 (0.1-1.0); Monocytes % 5.2 % (1.7-9.3); Neutrophils # 3.6 K/mm3 (1.8-7.8); Neutrophils % 64.4 % (37.0-80.0); Platelet Count 185 K/mm3 (142-424); Red Cell Distribution Width 14.2 % (11.5-17.5); White Blood Count 5.7 K/mm3 (4.8-10.8)
[2022-08-07 09:01] LABS: Creatinine,Urine Random 51 mg/dL (Not Estab.)
[2022-08-07 09:03] LABS: Microalbumin/Creatinine Ratio 29.2
[2022-08-07 09:13] LABS: Alanine Aminotransferase 27 U/L (12-78); Albumin Level 4.1 g/dl (3.5-5.0); Albumin/Globulin Ratio 1.9 (1.1-1.8); Alkaline Phosphatase 97 U/L (38-126); Anion Gap 12.4 mEq/L (5-15); Aspartate Amino Transferase 25 U/L (14-36); Bilirubin,Total 0.9 mg/dl (0.2-1.3); Blood Urea Nitrogen 15 mg/dl (7-17); Calcium 9.3 mg/dl (8.4-10.2); Carbon Dioxide 29 mmol/L (22.0-30.0); Chloride 103 mmol/L (98-107); Chol/HDL Ratio 2.3 (1-3.5); Cholesterol 96 mg/dl (140-200); Estimated Glomerular Filt Rate 129 ml/min (>60); GFR (African American) 156 ML/MIN (>60); Globulin 2.2 g/dL (1.3-3.2); Glucose 153 mg/dl (74-100); HDL Cholesterol 41 mg/dl (40-60); Potassium 4.4 mmoL/L (3.5-5.1); Sodium 140 mmol/L (136-145); Total Protein,Serum 6.3 g/dl (6.3-8.2); Triglycerides 130 mg/dl (30-150); VLDL Cholesterol 26 mg/dL (0-40)
[2022-08-07 09:24] LABS: Direct LDL Cholesterol 34.74 mg/dL (100-129)
[2022-08-07 09:37] LABS: Hemoglobin A1C 7.9 % (4.0-6.0)
== END ==
PROVIDERS: PCP Nurse Practitioner Family; Visit Provider Nurse Practitioner Family
DX: E11.9 Type 2 diabetes mellitus without complications (principal); E78.5 Hyperlipidemia, unspecified
CPT/HCPCS: 36415; 80053; 80061; 82043; 82570; 83036; 85025

== ENCOUNTER → 2022-08-11 15:13 | Outpatient (CLI) | payer OTHER, SELFPAY ==
--- NOTE | 2022-08-11 15:16 | CT_ITS ---
FINAL REPORT CLINICAL HISTORY: Smoker, 1/2 pack a day x 30 yrs. 0 sx hx, 0 chest complaints COMPARISON: 07/01/2021 FINDINGS: Axial images were obtained from the lung apex to the mid abdomen by computed tomography. Low-dose protocol was utilized. CTDl vol(mGy): 2.90 DLP (mGy-cm): 94.55 FINDINGS: There is no axillary adenopathy. There is no hilar or mediastinal adenopathy. The heart size is normal. Severe coronary artery calcifications are again noted. There is no pericardial or pleural effusion. Limited images of the upper abdomen are unremarkable. Lung window images demonstrate mild scarring. There is a new 4 mm nodule at the minor fissure. There is a stable 4 mm right upper lobe nodule seen on image 16. IMPRESSION: New 4 mm nodule at the minor fissure. Lung RADS category 3S. Recommend 12 month follow-up low-dose chest CT. Modifier S: Severe coronary artery calcifications. Reviewed, Interpreted and Dictated by Kehinde Murray III, MD Transcribed by Blanca Cabrera Authenticated and [facility]
== END ==
PROVIDERS: PCP Nurse Practitioner Family; Visit Provider Internal Medicine Adolescent Medicine
DX: Z87.891 Personal history of nicotine dependence (principal); Z12.2 Encounter for screening for malignant neoplasm of respiratory organs
CPT/HCPCS: 71271

== ENCOUNTER → 2022-09-10 13:12 | Outpatient (CLI) | payer OTHER, SELFPAY ==
--- NOTE | 2022-09-10 13:29 | ECG_ITS ---
APPROVED REPORT Exam: Resting ECG HR:89 bpm ECG Measurements Heart Rate 89 AXES VT 157 P 72 QRSd 100 QRS -26 QT 359 T 56 QTc 405 Conclusion SINUS RHYTHM BORDERLINE LEFT AXIS DEVIATION [QRS AXIS < -20] LOW QRS VOLTAGE IN PRECORDIAL LEADS [QRS DEFLECTION < 1.0 mV IN CHEST LEADS] BORDERLINE ECG UNCONFIRMED REPORT Electronically signed by : Shashank Bush MD 09/10/2022 17:11:30
[2022-09-10 14:10] LABS: Chloride 102 mmol/L (98-107); Sodium 140 mmol/L (136-145)
[2022-09-10 14:11] LABS: Basophils % 0.5 % (0.1-2.0); Eosinophils # 0.1 K/mm3 (0.0-0.4); Eosinophils % 1.3 % (0.1-12.0); Hematocrit 38.9 % (37.0-47.0); Hemoglobin 12.4 g/dL (12.2-16.2); Lymphocytes # 1.2 K/mm3 (0.7-4.5); Mean Corpuscular HGB Conc 31.9 g/dL (31.8-35.4); Mean Corpuscular Hemoglobin 29.2 pg (27.0-31.2); Mean Corpuscular Volume 91.8 fl (81-99); Monocytes # 0.3 K/mm3 (0.1-1.0); Monocytes % 5.9 % (1.7-9.3); Neutrophils # 3.2 K/mm3 (1.8-7.8); Neutrophils % 66.3 % (37.0-80.0); Platelet Count 209 K/mm3 (142-424); Red Blood Count 4.24 M/mm3 (4.20-5.40); Red Cell Distribution Width 14.4 % (11.5-17.5); White Blood Count 4.8 K/mm3 (4.8-10.8)
[2022-09-10 14:12] LABS: Blood Urea Nitrogen 13 mg/dl (7-17)
[2022-09-10 14:13] LABS: Alanine Aminotransferase 23 U/L (12-78); Albumin Level 3.9 g/dl (3.5-5.0); Albumin/Globulin Ratio 1.8 (1.1-1.8); Alkaline Phosphatase 88 U/L (38-126); Aspartate Amino Transferase 22 U/L (14-36); Bilirubin,Total 0.8 mg/dl (0.2-1.3); Calcium 9.1 mg/dl (8.4-10.2); Carbon Dioxide 27 mmol/L (22.0-30.0); Estimated Glomerular Filt Rate 88 ml/min (>60); GFR (African American) 106 ML/MIN (>60); Globulin 2.2 g/dL (1.3-3.2); Glucose 164 mg/dl (74-100); Total Protein,Serum 6.1 g/dl (6.3-8.2)
== END ==
PROVIDERS: PCP Nurse Practitioner Family; Visit Provider Otolaryngology
DX: Z01.812 Encounter for preprocedural laboratory examination (principal)
CPT/HCPCS: 36415; 80053; 85025; 93005

== ENCOUNTER → 2023-02-01 08:00 | Outpatient (CLI) | payer OTHER, SELFPAY ==
--- OUTSIDE RECORDS SUMMARY | 2023-02-01 08:04 | XMS_ITS | Patient Health Record ---
Author Name Unknown Organization [facility] Address [address] [place] [address] Care Team Providers Care Senior Account Manager Name Role Phone Shashank Bush Primary Care Provider Rossana Charles Unavailable [phone] ALLERGIES No Known Allergies RESULTS Component Value Reference Range Notes M-Complete Blood Count Auto Diff Reviewed date:08/07/2022 02:47:17 PM Interpretation: Performing Lab: Notes/Report: WBC 5.7 4.8-10.8 K/mm3 RBC 4.90 4.20-5.40 M/mm3 HGB 14.6 12.2-16.2 g/dL HCT 44.1 37.0-47.0 % MCV 90.0 81-99 fl MCH 29.8 27.0-31.2 pg MCHC 33.1 31.8-35.4 g/dL RDW 14.2 11.5-17.5 % PLT 185 142-424 K/mm3 MPV 8.6 7.4-10.4 fl NE% 64.4 37.0-80.0 % LY% 27.7 10-50 % MO% 5.2 1.7-9.3 % EO% 1.2 0.1-12.0 % BA% 1.5 0.1-2.0 % NE# 3.6 1.8-7.8 K/mm3 LY# 1.6 0.7-4.5 K/mm3 MO# 0.3 0.1-1.0 K/mm3 EO# 0.1 0.0-0.4 K/mm3 BA# 0.1 0-0.2 K/mm3
[2023-02-01 11:02] LABS: Alanine Aminotransferase 17 U/L (12-78); Albumin Level 4.4 g/dl (3.5-5.0); Albumin/Globulin Ratio 1.8 (1.1-1.8); Alkaline Phosphatase 97 U/L (38-126); Anion Gap 12.1 mEq/L (5-15); Aspartate Amino Transferase 21 U/L (14-36); Bilirubin,Total 1.1 mg/dl (0.2-1.3); Blood Urea Nitrogen 16 mg/dl (7-17); Calcium 9.7 mg/dl (8.4-10.2); Carbon Dioxide 25 mmol/L (22.0-30.0); Chloride 107 mmol/L (98-107); Chol/HDL Ratio 4.9 (1-3.5); Cholesterol 188 mg/dl (140-200); Estimated Glomerular Filt Rate 105 ml/min (>60); GFR (African American) 127 ML/MIN (>60); Globulin 2.5 g/dL (1.3-3.2); Glucose 136 mg/dl (74-100); HDL Cholesterol 38 mg/dl (40-60); Potassium 4.1 mmoL/L (3.5-5.1); Sodium 140 mmol/L (136-145); Total Protein,Serum 6.9 g/dl (6.3-8.2); Triglycerides 158 mg/dl (30-150); VLDL Cholesterol 32 mg/dL (0-40)
[2023-02-01 15:49] LABS: Hemoglobin A1C 6.9 % (4.0-6.0)
== END ==
PROVIDERS: PCP Nurse Practitioner Family; Visit Provider Nurse Practitioner Family
DX: E11.29 Type 2 diabetes mellitus with other diabetic kidney complication (principal); E78.5 Hyperlipidemia, unspecified; Z79.84 Long term (current) use of oral hypoglycemic drugs
CPT/HCPCS: 36415; 80053; 80061; 83036

== ENCOUNTER → 2023-02-08 11:12 | Outpatient (POV) | payer OTHER, SELFPAY ==
--- NOTE | 2023-02-08 12:24 | EXP.PAIN.OV ---
HPI Data of Consult Patient: new to practice Consult date: 02/08/23 Requesting Physician: Bro Moody CRNA Primary Care Provider: Rossana Charles APRN Consult Narrative Reason for consult: Cervical neck pain. Right upper extremity radiculopathy. History of present illness: Ms. Love is a 52 year old female who comes our clinic today with complaint of severe posterior cervical neck pain right greater than left. Patient describes the pain as constant, dull, aching, sharp, stabbing. Patient has difficulty with flexion, extension, left and right rotation of the cervical spine. Patient also reports right shoulder and arm radicular symptoms at times. Patient rates her pain 9/10. 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 Patient reports having these issues in the past however, not to this severity. Patient states she is having difficulty with ADLs. She is having difficulty with performing her job duties. However, patient continues working. We discussed treatment options. I will set the patient up for trigger point injections of the right cervical paraspinous muscle as well as right trapezius muscle. Placed patient on tramadol 50 mg 1 p.o. twice daily. Robaxin 500 mg 1 p.o. twice daily. Also, we will order the patient cervical MRI. CC: Bro Moody CRNA [facility] Disclaimer: The information contained in this section may have been updated after the patient was seen, as this information can be updated by other users. 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 Pathology consistent with inflamed node Surgical History Status post lymph node biopsy Social History Smoking Status: Current every day smoker tobacco type: cigarettes packs per day: 1 second hand exposure: Yes alcohol intake: never substance use type: denies use current occupational status: other Travel in the last 8 weeks: None Meds Home Medications and Allergies Home Medications Medication Instructions Recorded Confirmed Type bupropion HCl 300 mg 24 hr tablet, 300 mg PO 06/01/22 11/23/22 History extended release dapagliflozin propanediol 10 mg 10 mg PO 06/01/22 11/23/22 History tablet (Farxiga) rosuvastatin 20 mg tablet 20 mg PO 06/01/22 11/23/22 History semaglutide 1 mg/dose (4 mg/3 mL) 1 mg SQ 06/01/22 11/23/22 History subcutaneous pen injector (Ozempic) metformin 500 mg tablet,extended tab PO 09/18/22 11/23/22 History release 24 hr New Prescriptions to Start Prescriptions: Allergies Allergy/AdvReac Type Severity Reaction Status Date / Time No Known Allergies Allergy Verified 11/23/22 15:33 Assessment and Plan *Assessment and plan (1) Cervical pain: Status: Acute Category: Medical Code(s): M54.2 - Cervicalgia (2) Cervical radiculopathy: Status: Acute Category: Medical Code(s): M54.12 - Radiculopathy, cervical region (3) Myofascial pain syndrome, cervical: Status: Acute Category: Medical Code(s): M79.18 - Myalgia, other site Plan I will order cervical MRI. We will plan cervical paraspinous muscle trigger point injections. Right trapezius muscle trigger point injection. I will order tramadol 50 mg 1 p.o. twice daily. Robaxin 500 mg 1 p.o. twice daily. Patient's Elieser #[id number] have been reviewed and appropriate.
[2023-02-08 12:59] VITALS: BP 135/81; PULSE 89; RESP 18; O2SAT 99; BMI 31.1
== END | disposition home or self-care (01) ==
PROVIDERS: PCP Nurse Practitioner Family; Visit Provider Nurse Anesthetist, Certified Registered
DX: M54.2 Cervicalgia (principal); M54.12 Radiculopathy, cervical region; M79.18 Myalgia, other site
CPT/HCPCS: 99202; G0463

== ENCOUNTER 2023-02-09 08:27 | Day surgery (SDC) | payer OTHER, SELFPAY ==
[2023-02-09 08:25] VITALS: BP 148/85; PULSE 97; RESP 18; O2SAT 97
[2023-02-09 08:40] VITALS: BMI 30.4
[2023-02-09 08:57] VITALS: BP 134/77; PULSE 91; RESP 18; O2SAT 97
[2023-02-09 08:59] VITALS: BP 134/77; PULSE 91; RESP 18; O2SAT 97
[2023-02-09 09:05] VITALS: BP 148/85; PULSE 97; RESP 16; TEMP 36.6; O2SAT 100
--- NOTE | 2023-02-09 09:25 | EXP.PAIN.PRO ---
Procedure Date: 02/09/23 Time: 08:45 Anesthesiologist:: Bro Moody CRNA Complications:: None Pre-procedure Diagnosis:: Myofascial pain right cervical paraspinous muscle. Myofascial pain right trapezius muscle. Post-procedure Diagnosis:: Same. Indications for Procedure:: Patient is a very pleasant 52-year-old female comes our clinic today for trigger point injections of the right cervical paraspinous muscle as well as the right trapezius muscle. Patient has had cervical neck pain as well as trapezius pain intermittently over the last 2 to 3 years. However, she has had a significant increase in pain in this area over the last couple of weeks. She rates her pain 9/10. Procedure Details:: Details of the procedure explained to the patient. The patient taken procedure room placed in the sitting position. The area over the posterior cervical spine as well as right trapezius muscle was cleaned using chlorhexidine as a cleansing solution. Using a 25-gauge needle following negative aspiration 4 mL of the solution was injected into the right inferior posterior cervical paraspinous muscle in a fanning fashion laterally. The same procedure was carried out into separate areas of the right trapezius muscle. Patient tolerated the procedure without difficulty. There was a total of 12 cc of a solution containing 0.25% Marcaine +1% lidocaine and 40 mg of Depo-Medrol injected. Plan and Disposition:: Patient was discharged out incident.
== END 2023-02-09 09:05 | disposition home or self-care (01) ==
PROVIDERS: PCP Internal Medicine Adolescent Medicine; Visit Provider Nurse Anesthetist, Certified Registered
DX: M79.18 Myalgia, other site (principal)
CPT/HCPCS: 20552; J1040

== ENCOUNTER → 2023-03-10 07:22 | Outpatient (CLI) | payer OTHER, SELFPAY ==
--- NOTE | 2023-03-10 07:29 | MR_ITS ---
FINAL REPORT CLINICAL HISTORY: right sided NECK PAIN COMPARISON: None FINDINGS: Multiplanar MR imaging of the cervical spine was performed without contrast. On the sagittal T2-weighted images, disc degeneration is seen at multiple levels. There is no evidence of fracture. The vertebral alignment is normal. The cervical spinal cord has an unremarkable appearance without evidence of mass, edema or syrinx. The cervicomedullary junction is normal. C2-3: Uncovertebral osteophytes. Mild right neuroforaminal narrowing. C3-4: Small central disc protrusion. No significant canal stenosis or neuroforaminal narrowing. C4-5: Small central disc protrusion mildly indents the thecal sac. No significant canal stenosis or neuroforaminal narrowing. C5-6: Annular disc bulge. Central inferiorly extruded disc indents the thecal sac. Mild left neuroforaminal narrowing. Mild central canal stenosis with AP diameter of the thecal sac of 9 mm. C6-7: Annular disc bulge. Central disc protrusion. Mild left neuroforaminal narrowing. C7-T1: Small left paracentral disc protrusion. No significant canal stenosis or neuroforaminal narrowing. IMPRESSION: Multilevel degenerative disc disease with disc protrusions at multiple levels. Mild canal stenosis at C5-6. Reviewed, Interpreted and Dictated by Kehinde Murray III, MD Transcribed by Joselyn Brennan Authenticated and [facility]
== END ==
PROVIDERS: PCP Nurse Practitioner Family; Visit Provider Nurse Practitioner Family
DX: M54.2 Cervicalgia (principal)
CPT/HCPCS: 72141; 76376

== ENCOUNTER → 2023-03-15 13:00 | Outpatient (POV) | payer OTHER, SELFPAY ==
--- NOTE | 2023-03-15 13:20 | EXP.PAIN.SOA ---
[facility] Pain Management SOAP Note Subjective:: Patient is a pleasant 52-year-old female who presents today for MRI follow-up. We are currently treating the patient for degenerative disc disease of cervical spine with cervical radiculopathy symptoms, myofascial pain. Today she rates her pain a 7 out of 10. Patient denies any new trauma or injury. She states she continues to have pain in her neck with radiating symptoms more predominantly her left arm. Patient does state it is an aching, throbbing sensation with numbness and tingling. She does state the radiating symptoms are worse with certain positioning. She states the pain does interfere with her ability to perform activities of daily living such as cooking and cleaning. Patient does state that the Robaxin has not really seem to improve her symptoms and that she does not really like taking the tramadol. Patient has tried [id number] Tylenol and ibuprofen along with heat and ice and topicals with minimal relief. Patient does try and do at home exercising and stretching for longer than 6 weeks with minimal relief. Patient is interested in any help we may be able to provide. Her Elieser has been reviewed and is appropriate. Review of Systems: General: No recent weight changes, no fever, no sleep disturbances Respiratory: No cough, no shortness of air, no recurring pulmonary infections Cardiovascular/peripheral vascular: No chest pain, no palpitations, no edema, no shortness of breath Gastrointestinal: No new onset incontinence, normal bowel movements reported Genitourinary: No new onset incontinence Musculoskeletal: Neck pain, left arm pain Psychiatric: [Normal mood/affect] Neurological: [Denies weakness in extremities], [denies balance issues] Objective:: Physical Exam: General: Alert and oriented x3, no acute distress, pleasant and cooperative Lungs: Respirations even and unlabored, symmetrical chest expansion Eyes: PERRL Musculoskeletal: Flexion and extension of cervical [spine] somewhat guarded secondary to pain, [antalgic gait noted] Neurological: Speech clear, no gross sensory deficit FINDINGS: Multiplanar MR imaging of the cervical spine was performed without contrast. On the sagittal T2-weighted images, disc degeneration is seen at multiple levels. There is no evidence of fracture. The vertebral alignment is normal. The cervical spinal cord has an unremarkable appearance without evidence of mass, edema or syrinx. The cervicomedullary junction is normal. C2-3: Uncovertebral osteophytes. Mild right neuroforaminal narrowing. C3-4: Small central disc protrusion. No significant canal stenosis or neuroforaminal narrowing. C4-5: Small central disc protrusion mildly indents the thecal sac. No significant canal stenosis or neuroforaminal narrowing. C5-6: Annular disc bulge. Central inferiorly extruded disc indents the thecal sac. Mild left neuroforaminal narrowing. Mild central canal stenosis with AP diameter of the thecal sac of 9 mm. C6-7: Annular disc bulge. Central disc protrusion. Mild left neuroforaminal narrowing. C7-T1: Small left paracentral disc protrusion. No significant canal stenosis or neuroforaminal narrowing. IMPRESSION: Multilevel degenerative disc disease with disc protrusions at multiple levels. Mild canal stenosis at C5-6. Reviewed, Interpreted and Dictated by Kehinde Murray III, MD Transcribed by Joselyn Brennan Authenticated and [facility] Assessment:: Degenerative disc disease of lumbar spine with lumbar radiculopathy symptoms, cervical spinal stenosis, myofascial pain, neck pain Plan:: Patient is experiencing significant pain in her neck with radiating symptoms into her upper extremity. Patient did have limited range of motion of her cervical spine during today's visit. I have discussed with the patient that she may benefit from cervical epidural steroid injection. Risk
[2023-03-15 14:38] VITALS: BP 129/80; PULSE 90; RESP 18; O2SAT 98; BMI 29.3
== END | disposition home or self-care (01) ==
PROVIDERS: PCP Nurse Practitioner Family; Visit Provider Nurse Practitioner Family
DX: M50.10 Cervical disc disorder with radiculopathy, unspecified cervical region (principal); M79.10 Myalgia, unspecified site; M48.02 Spinal stenosis, cervical region
CPT/HCPCS: 99212; G0463

== ENCOUNTER 2023-03-30 14:12 | Day surgery (SDC) | payer OTHER, SELFPAY ==
[2023-03-30 14:10] VITALS: BP 127/78; PULSE 88; RESP 16; O2SAT 96; BMI 29.8
[2023-03-30 14:19] VITALS: BP 130/78; PULSE 82; O2SAT 96
[2023-03-30 14:22] VITALS: BP 130/78; PULSE 79; O2SAT 96
--- NOTE | 2023-03-30 14:24 | EXP.PAIN.PRO ---
Procedure Date: 03/30/23 Time: 14:15 Anesthesiologist:: Bro Moody CRNA Complications:: None Pre-procedure Diagnosis:: Degenerative disc disease cervical spine multilevels. Cervical radiculopathy Post-procedure Diagnosis:: Same. Indications for Procedure:: This patient is a very pleasant 52-year-old female comes to clinic today for cervical epidural steroid injection. Patient reports posterior cervical neck pain as well as bilateral arm radicular symptoms at times. 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 She does a lot of heavy lifting twisting. She rates her pain / Procedure Details:: Procedure:Cervical epidural steroid injection Informed consent was obtained and the risks and benefits of the procedure were explained to the patient. The patient was taken to the procedure room and noninvasive monitors placed, including noninvasive blood pressure cuff and pulse oximeter. The neck was prepped using Chloraprep as a cleansing solution. The C6-C7 interspace was viewed using fluroscopy. The skin and subcutaneous tissues were anesthetized using lidocaine 1.5% and a 25-gauge needle. After this an 18-gauge Touhy epidural needle was placed into the C6-C7 interspace under fluroscopy guidance and advanced using loss of resistance to air until the epidural space was encountered. After confirmation of needle placement in the epidural space using contrast dye, a solution containing normal saline, 2 mL and Depo-Medrol 80 mg was incrementally injected into the cervical epidural space.~ The patient tolerated the procedure well with no complications. The patient was observed in the Pain Clinic and then discharged home neurologically intact. Plan and Disposition:: Patient was discharged without incident.
[2023-03-30 14:25] VITALS: BP 129/73; PULSE 80; RESP 16; O2SAT 95
== END 2023-03-30 14:25 | disposition home or self-care (01) ==
PROVIDERS: PCP Nurse Practitioner Family; Visit Provider Nurse Anesthetist, Certified Registered
DX: M50.123 Cervical disc disorder at C6-C7 level with radiculopathy (principal)
CPT/HCPCS: 62321; J1030; Q9966

== ENCOUNTER 2023-06-26 08:47 | Outpatient (CLI) | payer OTHER, SELFPAY ==
[2023-06-26 09:52] LABS: Hemoglobin A1C 7.8 % (4.0-6.0)
[2023-06-26 09:58] LABS: Alanine Aminotransferase 21 U/L (12-78); Albumin Level 4.3 g/dl (3.5-5.0); Alkaline Phosphatase 111 U/L (38-126); Anion Gap 11.4 mEq/L (5-15); Aspartate Amino Transferase 22 U/L (14-36); Bilirubin,Total 1.1 mg/dl (0.2-1.3); Blood Urea Nitrogen 13 mg/dl (7-17); Calcium 9.5 mg/dl (8.4-10.2); Carbon Dioxide 24 mmol/L (22.0-30.0); Chloride 109 mmol/L (98-107); Chol/HDL Ratio 2.7 (1-3.5); Cholesterol 103 mg/dl (140-200); Estimated Glomerular Filt Rate 104 ml/min (>60); GFR (African American) 126 ML/MIN (>60); Globulin 2.2 g/dL (1.3-3.2); Glucose 134 mg/dl (74-100); HDL Cholesterol 38 mg/dl (40-60); Potassium 4.4 mmoL/L (3.5-5.1); Sodium 140 mmol/L (136-145); Total Protein,Serum 6.5 g/dl (6.3-8.2); Triglycerides 117 mg/dl (30-150); VLDL Cholesterol 23 mg/dL (0-40)
[2023-06-26 10:09] LABS: Direct LDL Cholesterol 45.62 mg/dL (100-129)
== END 2023-06-26 23:59 ==
LOC: LAB 08:49
PROVIDERS: PCP Nurse Practitioner Family; Visit Provider Nurse Practitioner Family
DX: E11.29 Type 2 diabetes mellitus with other diabetic kidney complication (principal); E78.5 Hyperlipidemia, unspecified
CPT/HCPCS: 36415; 80053; 80061; 83036

== ENCOUNTER 2023-08-12 08:41 | Emergency (ER) | payer OTHER, SELFPAY ==
[2023-08-12 08:50] VITALS: BP 128/78; PULSE 83; RESP 18; TEMP 37.1; O2SAT 98; BMI 29.7
--- NOTE | 2023-08-12 09:05 | ED_ITS ---
Discharge Plan Disposition Patient Disposition: Home, Self-Care Condition: Good Prescriptions Prescriptions: New amoxicillin 875 mg tablet 875 mg PO Q12H Qty: 20 0RF methylprednisolone 4 mg Tablets,Dose Pack 4 mg PO DIRECTED 6 Days Qty: 21 0RF Rx Instructions: Take 1 pack as directed for 6 days No Action Farxiga 10 mg tablet 10 mg PO DIRECTED Patient Comments: TAKE ONE TABLET BY MOUTH EVERY DAY Ozempic 1 mg/dose (4 mg/3 mL) pen injector 1 mg SQ DIRECTED Patient Comments: INJECT 1 MG SUBCUTANEOUSLY ONCE A WEEK bupropion HCl 300 mg tablet extended release 24 hr 300 mg PO DAILY Patient Comments: TAKE ONE TABLET BY MOUTH EVERY DAY rosuvastatin 20 mg tablet 20 mg PO DAILY Patient Comments: TAKE ONE TABLET BY MOUTH EVERY DAY metformin 500 mg tablet extended release 24 hr 1 tab PO DAILY lisinopril 5 mg tablet 5 mg PO DAILY Patient Comments: TAKE ONE TABLET BY MOUTH ONCE DAILY Referrals Follow up/Referrals: Rossana Charles APRN [Primary Care Provider] - See instructions Activity Restrictions/Add. Instructions Additional Instructions/Restrictions: Drink plenty of fluids. Take tylenol or ibuprofen for pain or fever. Take the medications as directed. Follow up with your regular doctor. GO TO THE ER FOR ANY WORSENING SYMPTOMS Clinical Impressions Clinical Impression: Otitis media Instructions Patient Instructions: Middle Ear Infection, Methylprednisolone, Amoxicillin Discharge ED Provider: Sincere Tracy [facility] General Stated complaint: Pain in Right ear Mode of Arrival: Ambulatory Source of Information: Patient Limitations: No Limitations Time Seen by Provider: 08/12/23 09:05 Description of Symptoms (Recalled from Triage Doc. by RN): Pt's symptoms are right ear pain, nasal drainage, and sinus pressure. HEENT Symptoms (Recalled from RN notes): Yes Resp Symptoms (Recalled from RN notes): No Skin Symptoms (Recalled from RN notes): No MS Symptoms (Recalled from RN notes): No Functional Status (Recalled from RN notes): n\a History of Present Illness Provider Complaint: She states that she has had right ear pain for the past 5 days. Related Data Home Medications Medication Instructions Recorded Confirmed bupropion HCl 300 mg 24 hr tablet, 300 mg PO DAILY MOOD 06/01/22 08/12/23 extended release dapagliflozin propanediol 10 mg 10 mg PO DIRECTED Diabetes 06/01/22 08/12/23 tablet (Farxiga) rosuvastatin 20 mg tablet 20 mg PO DAILY 06/01/22 08/12/23 semaglutide 1 mg/dose (4 mg/3 mL) 1 mg SQ DIRECTED 06/01/22 08/12/23 subcutaneous pen injector (Ozempic) metformin 500 mg tablet,extended 1 tab PO DAILY Diabetes 09/18/22 08/12/23 release 24 hr lisinopril 5 mg tablet 5 mg PO DAILY 08/12/23 08/12/23 Previous Rx's Medication Instructions Recorded amoxicillin 875 mg tablet 875 mg PO Q12H #20 tabs 08/12/23 methylprednisolone 4 mg tablets in 4 mg PO DIRECTED 6 days #21 tabs 08/12/23 a dose pack Allergies Allergy/AdvReac Type Severity Reaction Status Date / Time No Known Allergies Allergy Verified 08/12/23 08:55 Worker's Comp Is this a Worker's Comp case?: No [facility] Disclaimer: The information contained in this section may have been updated after the patient was seen, as this information can be updated by other users. 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 Pathology consistent with inflamed node Surgical History Status post lymph node biopsy Social History Smoking Status: Current every day smoker tobacco type: cigarettes packs per day: 1 second hand exposure: Yes alcohol intake: never substance use type: denies use current occupational status: employed Travel in the last 8 weeks: None ROS Obtained: Yes All systems reviewed & no additional complaints except as documented Constitutional Constitutional: Denies chills, Reports fever(s) and Reports poor appetite Eyes Eyes: Denies eye discharge ENT Ears, Nose, Mouth, and Throat: Denies ear discharge, Reports otalgia, Denies hearing loss, Denies sinus pain and Reports sore throat Cardiovascular Cardiovascular: Denies chest pain and Denies dyspnea Respiratory Respiratory: Denies chest congestion, Reports cough and Denies dyspnea Gastrointestinal Gastrointestingal: Denies abdominal pain, diarrhea, nausea or vomiting Musculoskeletal Musculoskeletal: Denies arthralgias Integumentary/Breasts Skin/Breast: Denies rash Physical Exam General General appearance: alert and in no apparent distress Head Head exam: atraumatic, normocephalic and normal inspection Eye Eye exam: Present normal appearance; Absent PERRL or EOMI ENT ENT exam: Present mucous membranes moist and normal external ear exam Expanded ENT Exam TM/Canal exam: Bilateral TM: erythema, bulging and effusion Nose exam: Absent sinus tenderness Nasal speculum exam: Bilateral: normal Mouth exam: Present normal external inspection and other; Absent drooling Teeth exam: Present normal inspection Throat exam: Present tonsillar erythema and tonsillomegaly Neck Neck exam: Present normal inspection, full ROM and trachea midline; Absent tenderness, meningismus or lymphadenopathy Chest Chest inspection: Present normal inspection and symmetric chest wall rise; Absent tenderness Respiratory Respiratory exam: Present normal lung sounds bilaterally; Absent respiratory distress, wheezes or stridor Cardiovascular Cardiovascular exam: Present regular rate, normal rhythm and normal heart sounds; Absent tachycardia or irregular rhythm Abdominal Exam Abdominal exam: Present soft and normal bowel sounds; Absent distention, tenderness, guarding, rebound or rigidity Extremities Exam Extremities exam: Present normal inspection and normal capillary refill; Absent tenderness, joint swelling or calf tenderness Back Exam Back exam: Present normal inspection and full ROM; Absent tenderness, CVA tenderness (R) or CVA tenderness (L) Neurological Exam Neurological exam: Present alert, oriented X3, CN II-XII intact, normal gait and reflexes normal; Absent motor sensory deficit Psychiatric Psychiatric exam: Present normal affect and normal mood Skin Skin exam: Present warm, dry, intact and normal color Lymphatic Lymphatic Findings: no adenopathy Medical Decision Making Medical Records Medical records reviewed: No I reviewed the patient's medical records. Elieser Inquiry Pt receiving controlled substance: No Vital Signs: 08/12/23 08:50 Temperature 98.7 F Temperature Source Oral Pulse Rate [Right Radial] 83 Respiratory Rate 18 Blood Pressure [Right Arm] 128/78 Blood Pressure Mean [Right Arm] 94 Blood Pressure Source [Right Arm] Automatic Cuff Blood Pressure Position [Right Arm] Sitting 02 Sat by Pulse Oximetry 98 Oxygen Delivery Method Room Air
[2023-08-12 09:21] VITALS: BP 128/78; PULSE 83; RESP 19; TEMP 37.1; O2SAT 98
== END 2023-08-12 09:21 | disposition home or self-care (01) ==
PROVIDERS: Emergency Provider Nurse Practitioner Family; PCP Nurse Practitioner Family
DX: H66.91 Otitis media, unspecified, right ear (principal); F17.210 Nicotine dependence, cigarettes, uncomplicated
CPT/HCPCS: 99212; 99214; G0463

== ENCOUNTER 2023-08-18 07:06 | Outpatient (CLI) | payer OTHER, SELFPAY ==
[2023-08-18 09:05] LABS: Anion Gap 11.3 mEq/L (5-15); Blood Urea Nitrogen 20 mg/dl (7-17); Calcium 9.9 mg/dl (8.4-10.2); Carbon Dioxide 28 mmol/L (22.0-30.0); Chloride 104 mmol/L (98-107); Estimated Glomerular Filt Rate 104 ml/min (>60); GFR (African American) 126 ML/MIN (>60); Glucose 139 mg/dl (74-100); Potassium 4.3 mmoL/L (3.5-5.1); Sodium 139 mmol/L (136-145)
[2023-08-18 11:35] LABS: Hemoglobin A1C 7.4 % (4.0-6.0)
== END 2023-08-18 23:59 | disposition home or self-care (01) ==
LOC: LAB 07:06
PROVIDERS: PCP Nurse Practitioner Family; Visit Provider Nurse Practitioner Family
DX: E11.29 Type 2 diabetes mellitus with other diabetic kidney complication (principal)
CPT/HCPCS: 36415; 80048; 83036

== ENCOUNTER 2023-09-02 09:50 | Outpatient (CLI) | payer OTHER, SELFPAY ==
--- NOTE | 2023-09-02 09:55 | XR_ITS ---
FINAL REPORT CLINICAL HISTORY: Rt Hand pain, PAIN AND SWELLING RT 4TH FINGER COMPARISON: None FINDINGS: RIGHT HAND: 3 views of the right hand were obtained. Soft tissue swelling is present in the fourth finger, along with mild degenerative change. There is a possible fracture involving the proximal aspect of the fourth proximal phalanx seen only on the lateral view. This is a difficult area to image secondary to numerous overlying bone densities. Follow-up radiographs might be helpful. Visualized joint spaces are normally aligned. IMPRESSION: Possible fracture involving the proximal aspect of the fourth proximal phalanx seen only on the lateral view. Follow-up radiographs may be helpful. Reviewed, Interpreted and Dictated by Kehinde Murray III, MD Transcribed by Brandy Ignacio Authenticated and [facility]
== END 2023-09-02 23:59 | disposition home or self-care (01) ==
LOC: RAD 09:50
PROVIDERS: PCP Nurse Practitioner Family; Visit Provider Orthopaedic Surgery
DX: M79.641 Pain in right hand (principal); M65.341 Trigger finger, right ring finger
CPT/HCPCS: 73130

== ENCOUNTER 2023-09-15 11:07 | Outpatient (POV) | payer OTHER, SELFPAY | END 2023-09-15 23:59 | disposition home or self-care (01) | LOC: SC 11:08 | PROVIDERS: Visit Provider Specialist/Technologist | DX: Z00.00 Encounter for general adult medical examination without abnormal findings (principal) ==

== ENCOUNTER 2023-10-20 06:13 | Day surgery (SDC) | payer OTHER, SELFPAY ==
[2023-10-19 07:23] VITALS: BMI 29.5
[2023-10-20] MEDS: LACTATED RINGERS 1000ML 1,000 ML 100 ML IV (06:26)
[2023-10-20 06:32] VITALS: BP 125/71; PULSE 84; RESP 18; TEMP 36.1; O2SAT 98
[2023-10-20 06:48] LABS: POC Glucose,Bedside 130 (70-110)
--- NOTE | 2023-10-20 07:35 | EXP.ANES.CKL ---
[facility] Disclaimer: The information contained in this section may have been updated after the patient was seen, as this information can be updated by other users. Medical History (Updated 10/20/23 @ 06:46 by Tamar Charles RN) History of COVID-19 Diabetes ETD (eustachian tube dysfunction) Mass of right parotid gland Lipoma of cheek Surgical History (Updated 10/20/23 @ 06:46 by Tamar Charles RN) Hx of tubal ligation Hx of cholecystectomy H/O: hysterectomy History of Status post lymph node biopsy Family History Father Family history of hypertension Mother Family history of hypertension Other Family history of diabetes mellitus type II Social History (Updated 10/20/23 @ 06:39 by Tamar Charles RN) Smoking Status: Current every day smoker tobacco type: cigarettes packs per day: 1 second hand exposure: Yes alcohol intake: never substance use type: denies use current occupational status: employed Travel in the last 8 weeks: None [facility] Anesthesia Checklist Patient Identification Patient Identification: Arm Band Structural Data Admitted From: Home Planned Operative Procedure/s: Right Trigger Finger Release Consent for Planned Operative Procedure(s) Verified: Yes Verified Documents: Surgical Consent and History and Physical NPO Status Verified Time NPO: 00:00 Additional verifications Anesthesia Reactions: No Hx Blood Transfusions: No Blood Transfusion Reaction: No Airway Assessment Mallampati Score:: Class II C-Spine Mobility Assessed: Yes TMJ Mobility Assessed: Yes Dentition: Good Dentition Neurological Assessment Level of Consciousness: Awake, Alert and Appropriate Anesthesia Plan Anesthesia Risk discussed: Yes Anesthesia Plan: Verified ASA Class: II Anesthesia Type: MAC
[2023-10-20] MEDS: LIDOCAINE 1% W/EPI 1:100,000 20ML VIAL 20 ML (07:46)
[2023-10-20] MEDS: CEFAZOLIN SODIUM 2 GM in 0.9 % SODIUM CHLORIDE 100 ML IV (07:47)
[2023-10-20 07:53] VITALS: TEMP 43
--- NOTE | 2023-10-20 07:57 | P.OP_ITS ---
Date of procedure: 10/20/23 Pre-op Diagnosis:: Trigger finger right ring finger Post-op Diagnosis:: Same Procedure performed:: Right ring finger A1 janice release, trigger finger release Surgeon:: Sean Cruz DO Stope Miner(s):: Adonay HOUGH GRAPHIC USER INTERFACE DESIGNER:: Aj Sales Anesthesia: MAC and local Estimated blood loss (mL): 0 Operative findings:: See dictation Operative note:: Patient is identified preoperatively. Right ring finger marked with yes my initials. Transferred operative suite placed upon on the operating bed with a hand table. Given sedation. Right upper extremity prepped and draped normal sterile fashion. Once prepped and draped final operative timeout performed to identify proper patient procedure and extremity. Everyone involved the case agreed. There are no counter indications to beginning. Did receive preoperative antibiotics. Marking pen was used to neto plan incision over the volar aspect of the A1 janice ring finger on the right side. Local anesthesia infiltrated to the incision site. Esmarch was used to exsanguinate extremity pneumatic tourniquet inflated to 250 mmHg. Skin knife is used to incise through skin. Scissors were taken down dissection to identify the A1 janice. A small slice of the A1 janice was performed with a [place] blade. And then using scissors the A1 janice was released proximally and distally. This allow me to bring the tendons outside of the wound for inspection. Of note the tendons were swollen and inflamed with larger than normal diameter of the tendons. Irrigation of the wound performed. Skin closed with nylon stitches. Sterile hand dressing placed. Patient waken anesthesia taken recovery in stable condition. Condition: stable Disposition: PACU Complications:: None apparent
[2023-10-20 08:05] VITALS: BP 106/61; PULSE 80; RESP 16; TEMP 36.6; O2SAT 96
[2023-10-20 08:15] VITALS: BP 114/68; PULSE 83; RESP 16; O2SAT 98
[2023-10-20 08:25] VITALS: BP 108/72; PULSE 81; RESP 16; O2SAT 98
[2023-10-20 08:35] VITALS: BP 110/72; PULSE 82; RESP 16; O2SAT 98
== END 2023-10-20 08:40 | disposition home or self-care (01) ==
PROVIDERS: PCP Nurse Practitioner Family; Visit Provider Orthopaedic Surgery
PROC: (CPT 26055; principal; 2023-10-20 07:30)
DX: M65.341 Trigger finger, right ring finger (principal)
CPT/HCPCS: 26055; 82962; 96374; J0690; J2250; J3010; J7120

== ENCOUNTER 2023-11-03 06:16 | Outpatient (CLI) | payer OTHER, SELFPAY ==
--- NOTE | 2023-11-03 | CT_ITS ---
FINAL REPORT TECHNIQUE: Thin section axial images were obtained through the lungs using a low-dose technique per lung cancer screening protocol. Reconstruction images were obtained using the axial data. Exam was performed using dose reduction technique. CLINICAL HISTORY: low dose lung screening current smoker 1/2 ppd x 30 years COMPARISON: 08/11/2022 FINDINGS: CTDLvol: 2.90 DLP: 96.38 Lungs: Previously seen 4 mm nodule along the minor fissure is not identified on today's exam. There is a stable right upper lobe nodule on image 17. No new nodule or mass identified. There are no areas of consolidation. No suspicious nodules. Lymph nodes: No thoracic lymphadenopathy. Mediastinum: Heart size is normal. Prominent coronary artery calcifications. Pleura/pericardium: No pleural or pericardial effusion. Other: No acute abnormality in the upper abdomen. IMPRESSION: Stable nodules. Lung RADS: 2 S Recommendation: 12 month follow-up low-dose chest CT is recommended. Modifier S: Prominent coronary artery calcifications. Reviewed, Interpreted and Dictated by Kandis Jacobson MD Transcribed by Joselyn Brennan Authenticated and [facility]
== END 2023-11-03 23:59 | disposition home or self-care (01) ==
LOC: RAD 06:17
PROVIDERS: PCP Nurse Practitioner Family; Visit Provider Nurse Practitioner Family
DX: Z87.891 Personal history of nicotine dependence (principal)
CPT/HCPCS: 71271

== ENCOUNTER 2023-11-05 07:59 | Outpatient (CLI) | payer OTHER, SELFPAY ==
--- NOTE | 2023-11-05 08:03 | MM_ITS ---
PROCEDURE INFORMATION: Exam: MG Bilateral Screening 3D Mammography Exam date and time: 11/05/2023 7:56 AM Age: 53 years old Clinical indication: Screening examination. Her maternal grandmother had breast cancer. TECHNIQUE: Imaging protocol: Bilateral Screening tomosynthesis and 2D mammography including computer-aided detection (CAD) when performed. COMPARISON: 1. MG MM DIG SCREENING MAMM BI W/CAD 07/27/2022 1:31 PM 2. MG MM DIG SCREENING MAMM BI W/CAD 07/01/2021 9:38 AM 3. MG DMSB DIG MAMM-SCREEN JANNET 05/23/2015 3:15 PM 4. MG DMDXUAVR DIG MAMM-DX UNIL ADD VIEWS-RT 04/28/2012 3:15 PM FINDINGS: MAMMOGRAPHY: Breast composition: There are scattered areas of fibroglandular density. Mass: None. Architectural distortion: None. Calcifications: No suspicious calcifications. Asymmetric density: None. Skin thickening: None. Axillary adenopathy: None. IMPRESSION: No mammographic evidence of malignancy. Annual screening is recommended unless otherwise clinically indicated. ASSESSMENT: BI-RADS Category 1: Negative
--- NOTE | 2023-11-05 08:15 | HMH.ITSTN ---
patient was checked in 3o min before appt, but I had a patient scheduled ahead of her. was giving that patient a few to get checked in . that is why I did not immediately get this patient
== END 2023-11-05 23:59 | disposition home or self-care (01) ==
LOC: RAD 07:59
PROVIDERS: PCP Nurse Practitioner Family; Visit Provider Nurse Practitioner Family
DX: Z12.31 Encounter for screening mammogram for malignant neoplasm of breast (principal)
CPT/HCPCS: 77063; 77067

== ENCOUNTER 2023-12-02 07:26 | Outpatient (CLI) | payer OTHER, SELFPAY ==
[2023-12-02 07:57] LABS: Hemoglobin A1C 7.2 % (4.0-6.0)
[2023-12-02 08:26] LABS: Chloride 111 mmol/L (98-107)
[2023-12-02 08:27] LABS: Albumin Level 3.9 g/dl (3.5-5.0); Potassium 4.2 mmoL/L (3.5-5.1); Sodium 141 mmol/L (136-145)
[2023-12-02 08:29] LABS: Blood Urea Nitrogen 19 mg/dl (7-17); Estimated Glomerular Filt Rate 87 ml/min (>60); GFR (African American) 106 ML/MIN (>60)
[2023-12-02 08:30] LABS: Alanine Aminotransferase 25 U/L (12-78); Albumin/Globulin Ratio 1.6 (1.1-1.8); Alkaline Phosphatase 94 U/L (38-126); Anion Gap 7.2 mEq/L (5-15); Aspartate Amino Transferase 21 U/L (14-36); Calcium 9.1 mg/dl (8.4-10.2); Carbon Dioxide 27 mmol/L (22.0-30.0); Globulin 2.4 g/dL (1.3-3.2); Glucose 138 mg/dl (74-100); Total Protein,Serum 6.3 g/dl (6.3-8.2)
== END 2023-12-02 23:59 | disposition home or self-care (01) ==
LOC: LAB 07:26
PROVIDERS: PCP Nurse Practitioner Family; Visit Provider Nurse Practitioner Family
DX: E11.29 Type 2 diabetes mellitus with other diabetic kidney complication (principal)
CPT/HCPCS: 36415; 80053; 83036

== ENCOUNTER 2024-04-10 14:13 | Outpatient (RCR) | payer OTHER, SELFPAY | END 2024-04-10 15:00 | disposition home or self-care (01) | LOC: OT 14:13 | PROVIDERS: Visit Provider Internal Medicine Adolescent Medicine | DX: G56.03 Carpal tunnel syndrome, bilateral upper limbs (principal) ==

== ENCOUNTER 2024-05-15 07:40 | Outpatient (CLI) | payer OTHER, SELFPAY ==
[2024-05-15 08:53] LABS: Alanine Aminotransferase 21 U/L (12-78); Albumin Level 4.2 g/dl (3.5-5.0); Alkaline Phosphatase 114 U/L (38-126); Anion Gap 11.7 mEq/L (5-15); Aspartate Amino Transferase 23 U/L (14-36); Bilirubin,Total 0.8 mg/dl (0.2-1.3); Blood Urea Nitrogen 16 mg/dl (7-17); Calcium 9.5 mg/dl (8.4-10.2); Carbon Dioxide 25 mmol/L (22.0-30.0); Chloride 108 mmol/L (98-107); Chol/HDL Ratio 2.2 (1-3.5); Cholesterol 106 mg/dl (140-200); Estimated Glomerular Filt Rate 104 ml/min (>60); GFR (African American) 126 ML/MIN (>60); Globulin 2.1 g/dL (1.3-3.2); Glucose 164 mg/dl (74-100); HDL Cholesterol 49 mg/dl (40-60); Potassium 4.7 mmoL/L (3.5-5.1); Sodium 140 mmol/L (136-145); Total Protein,Serum 6.3 g/dl (6.3-8.2); Triglycerides 71 mg/dl (30-150); VLDL Cholesterol 14 mg/dL (0-40)
[2024-05-15 10:18] LABS: Microalbumin/Creatinine Ratio 17.6
[2024-05-15 10:24] LABS: Creatinine,Urine Random 50 mg/dL (Not Estab.)
[2024-05-15 10:58] LABS: Hemoglobin A1C 7.6 % (4.0-6.0)
[2024-05-15 19:00] LABS: Direct LDL Cholesterol 48.09 mg/dL (100-129)
== END 2024-05-15 23:59 | disposition home or self-care (01) ==
LOC: LAB 07:41
PROVIDERS: PCP Nurse Practitioner Family; Visit Provider Nurse Practitioner Family
DX: E11.29 Type 2 diabetes mellitus with other diabetic kidney complication (principal); E78.5 Hyperlipidemia, unspecified
CPT/HCPCS: 36415; 80053; 80061; 82043; 82570; 83036

== ENCOUNTER 2024-07-11 15:40 | Outpatient (CLI) | payer OTHER, SELFPAY ==
--- NOTE | 2024-07-11 15:43 | MR_ITS ---
FINAL REPORT TECHNIQUE: Multiplanar and multisequence imaging of the shoulder was obtained without contrast. CLINICAL HISTORY: LT SHOULDER PAIN X FEW YEARS LROM PAIN JUST GETTING WORSE NO TRAUMA/INJURY COMPARISON: None FINDINGS: Bones and joints: There is no acute fracture, edema, or pathologic marrow replacement. Acromioclavicular joint degenerative disease is present and there is osteophytosis which narrows the supraspinatus outlet. Rotator cuff: There is globular T1 and T2 hypointense signal in the posterior aspect of the supraspinatus tendon consistent with calcific tendinosis or calcific tendinitis. Surrounding soft tissue edema is identified. There is no full-thickness tear of either the supraspinatus or infraspinatus tendons. The subscapularis tendon is intact without evidence of fatty atrophy. Labrum: No labral tear is identified. The inferior glenohumeral ligament is intact. The biceps tendon is intact, with a small amount of fluid in the bicipital tendon sheath suggesting mild tenosynovitis. No biceps tendon tear is identified. Other: There is no joint effusion. Remaining soft tissues are within normal limits. IMPRESSION: T1 and T2 hypointense signal in the posterior supraspinatus tendon consistent with calcific tendinosis or tendinitis. No full-thickness rotator cuff tendon tears are seen. Small amount of fluid is present in the biceps tendon sheath consistent with mild tenosynovitis. Reviewed, Interpreted and Dictated by Kandis Jacobson MD Transcribed by Brandy Ignacio Authenticated and [facility]
== END 2024-07-11 23:59 | disposition home or self-care (01) ==
LOC: RAD 15:40
PROVIDERS: PCP Nurse Practitioner Family; Visit Provider Physician Assistant Surgical
DX: M25.512 Pain in left shoulder (principal)
CPT/HCPCS: 73221

== ENCOUNTER 2024-07-31 07:02 | Outpatient (CLI) | payer OTHER, SELFPAY ==
--- OUTSIDE RECORDS SUMMARY | 2024-07-31 07:06 | XMS_ITS ---
Care Plan - [facility] Created on: July 31, 2024 LoveIvett robles : 1970 Sex: Female Author Organization [facility] Address [address] [place] [address] Phone Care Team Providers Care Customs Director Name Role Phone Mario MORRISON, Kehinde Unavailable [phone] Rossana Charles APRN Unavailable Leslye vailable
--- OUTSIDE RECORDS SUMMARY | 2024-07-31 07:06 | XMS_ITS ---
Author Organization [facility] Address [address] [facility] [address] Phone Care Team Providers Care Direct Care Provider Name Role Phone Mario MORRISON, Kehinde Unavailable [phone] Rossana Charles APRN Unavailable Leslye vailable Problems Includes: Active, inactive, and resolved Problems All Visits Onset Date Resolved Date Provider Condition S tatus Joint Pain, Localized in Both Shoulders 04/26/2024 Lamont Valentin PA-C Active Last Documented On 5 8:51AM ; [facility] Plan of Treatment Instructions to patient Lose weight Last Documented On 5 3:04PM ; [facility] Lose weight Last Documented On 5 8:56AM ; [facility] Assessments Includes: Assessments for all patient encounters Findings Encounter Date Overweight Non Physician Specified with Arturo Valentin PA-C 04/26/2024 Last Documented On 5 9:12AM ; [facility] Instructions Includes: Instructions for all patient encounters Instructions to patient Lose weight Last Documented On 5 3:04PM ; [facility] Lose weight Last Documented On 5 8:56AM ; [facility] Medical Equipment - Implanted Devices Includes: Current and historical Devices No Medical Equipment Recorded Medications Administered Includes: Administered Medications in patient's chart No Administered Medications Recorded Vital Signs Includes: Vital Signs from 08/01/2023 through 07/31/2024 Vital Name 06/12/2024 03:05P Height (in) 66 Weight (lb) 190 Body Mass Index 30.7 Body Surface Area 2 Note: bfj Last Documented: On 06/12/2024 3:05PM ; [facility] Results Includes: Results from 08/01/2023 through 07/31/2024 No Results Recorded For Specified Dates History of Present Illness History of Present Illness not supported for this document type No History of Present Illness Recorded Social History Description Last Updated Alcohol use 04/26/2024 Last Documented On 5 9:12AM ; [facility] Caffeine use 04/26/2024 Last Documented On 5 9:12AM ; [facility] No recent change in diet 04/26/2024 Last Documented On 5 9:12AM ; [facility] Not a current smoker. 04/26/2024 Last Documented On 5 9:12AM ; [facility] Not exercising regularly 04/26/2024 Last Documented On 5 9:12AM ; [facility] Not using drugs 04/26/2024 Last Documented On 5 9:12AM ; [facility] Smoking Status Unknown Procedures and Surgical History Includes: Procedures from 08/01/2023 through 07/31/2024 Procedures Code Diagnosis Performing Provider Service Location Service Date DRAIN/INJECT, JOINT/BURSA (Bilateral Procedure) 87727 Pain in right shoulder, Pain in left shoulder [facility]ont [facility] 04/26/2024 Last Documented On 5 10:18AM ; [facility] Triamcinolone/Kenalog, 10mg per cc [id number] Pain in right shoulder, Pain in left shoulder Lamont GALEASChacho [facility] 04/26/2024 Last Documented On 5 10:18AM ; [facility] X-RAY EXAM OF SHOULDER 2-3 VIEWS (LEFT) 92425 Pain in left shoulder Lamont Valentin PA-C [facility] 04/26/2024 Last Documented On 5 10:18AM ; [facility] X-RAY EXAM OF SHOULDER 2-3 VIEWS (RIGHT) 08919 Pain in right shoulder Lamont Valentin PA-C [facility] 04/26/2024 Last Documented On 5 10:18AM ; [facility] Surgical History Last Updated History of History of Gallbladder 2024 Last Documented On 5 9:12AM ; [facility] History of hysterectomy 04/26/2024 Last Documented On 5 9:12AM ; [facility] History of Previous Fractures 04/26/2024 Last Documented On 5 9:12AM ; [facility] Medical History Includes: Medical History in patient's chart Description Last Updated History of diabetes mellitus 04/26/2024 Last Documented On 5 9:12AM ; [facility] Family History Includes: Family History in patient's chart Description Last Updated Diabetes mellitus 04/26/2024 Last Documented On 5 9:12AM ; [facility] Family history of cancer 04/26/2024 Last Documented On 5 9:12AM ; [facility] Family history of heart disease 04/26/19 Last Documented On 5 9:12AM ; [facility] Family history of systemic hypertension 04/26/2024 Last Documented On 5 9:12AM ; [facility] Stroke / Seizures 04/26/2024 Last Documented On 5 9:12AM ; [facility] Review of Systems Review of Systems not supported for this document type No Review of Systems Recorded Mental Status Description No anxiety Functional Status No Functional Status Recorded Physical Exam Physical Exam not supported for this document type No Physical Exam Recorded Encounters Includes: Encounters from 08/01/2023 through 07/31/2024 Encounter Provider Location Date Check-In Time Check-Out Time Diagnosis Follow Up Lamont Valentin PA-C [facility] 06/12/19 25 2:07PM 3:14PM Non Physician Specified Lamont Valentin PA-C [facility] 04/26/19 25 8:26AM 9:11AM Overweight Insurance Includes: Active Insurance Policies Plan Name Member ID Group # Subscriber Relationship Effect jakob Dates 1 - R [id number] Ivett Chaidez Clinical Notes Includes: Signed Clinical Notes starting from 04/02/2022 * Progress note Date Encounter Last Documented by 06/12/2024 Follow Up Last documented on 07/02/2024; 7:39 PM, Lamont Valentin PA-C; [facility] Active Problems & Conditions - Joint Pain, Localized in Both Shoulders Chief Complaint The Chief Complaint is: JANNET shoulder pain. Referred Here Referred by. History of Present Illness Ivett Love is a 54 year old female. - Symptoms catching pain stanislaw with rest pain worse with reaching above head. - Allergy list reviewed - Problem list reviewed - Medication list reviewed - Previous history of new onset pain Injury is not work related or an automotive accident - Patient pain level from 1-10: 6 - - Review of medications documented Patient is seen today In follow up for her bilateral shoulder pain. She states the left shoulder still is worse than the right despite conservative measures including but not limited to ice, rest, anti-inflammatories, heat, and physical therapy Physical exam Left shoulder General Exam: The patient is awake and alert. No acute distress. Normal mood and affect for age. Well groomed and nourished Neuro: Sensation was intact to light touch over the extremity. Vascular: +2 radial pulses. No edema. Derm: No signs of active infection. No acute skin changes. Musculoskeletal: Normal gait and station. No muscle atrophy. No joint effusion. No muscle or bony deformity. Patient has pain with active forward flexion. Full passive motion. There is pain and weakness with supraspinatus and subscapularis testing. Right shoulder General Exam: The patient is awake and alert. No acute distress. Normal mood and affect for age. Well groomed and nourished Neuro: Sensation was intact to light touch over the extremity. Vascular: +2 radial pulses. No edema. Derm: No signs of active infection. No acute skin changes. Musculoskeletal: Normal gait and station. No muscle atrophy. No joint effusion. No muscle or bony deformity. Patient has pain with active forward flexion. Full passive motion. There is pain and weakness with supraspinatus testing. Assessment Bilateral shoulder internal derangement Plan Based on these findings and her failure to improve with conservative measures noted above we will proceed with the MRI of the left shoulder. Patient will follow up with us once the MRI has been completed Past Medical/Surgical History Diagnoses: Diabetes mellitus Surgical: - Hysterectomy - History of Gallbladder - Previous Fractures Social History Not a current smoker. Current diet: No recent change in diet. Caffeine use: Caffeine use. Alcohol: Alcohol use. Drug Use: Not using drugs. Habits: Not exercising regularly. Family History Cancer Heart disease Stroke / Seizures Diabetes mellitus Systemic hypertension Review Of Systems Systemic: Not feeling tired, no recent weight loss, and no recent weight gain. Head: No headache and no sinus pain. Eyes: No vision problems and no Cataracts. Glasses/Contacts. No Glaucoma. Otolaryngeal: No hearing loss and no tinnitus. Cardiovascular: No chest pain or discomfort, no palpitations, and no Hypertension. High Cholesterol. Pulmonary: No daytime asthma symptoms and no chronic cough. No wheezing. Gastrointestinal: No heartburn and no abdominal pain. No Indigestion, no Peptic Ulcer, no GI Stomach Bleed, no Ulcers, and no Acid Reflux. Endocrine: No hot flashes and no muscle weakness. Diabetes. No Hypothyroid and no Hyperthyroid. Hematologic: No easy bleeding, no tendency for easy bruising, and no Anemia. Musculoskeletal: No Arthritis and no lower back pain. No soft tissue swelling and no localized joint pain. Neurological: No dizziness, no convulsions, and no numbness. Psychological: No anxiety, no emotional lability, no depression, and no insomnia. Not crying for no reason. Skin: No dry skin. No Ulcers, no Scars, and no rash. Allergic and Immunologic: No complaint of seasonal allergic reaction. Physical Findings - Vitals taken 06/12/2024 03:05 pm bfj Height 66 in Weight 190 lbs Body Mass Index 30.7 kg/m2 Body Surface Area 2 m2 Counseling/Education - Tobacco non-user - Use of tobacco assessment performed - Lose weight Care Team - Rossana Charles, MYRON * Progress note Date Encounter Last Documented by 04/26/2024 Non Physician Specified Last doc umented on 04/26/2024; 9:12 AM, Lamont Valentin PA-C; [facility] Active Problems & Conditions - Joint Pain, Localized in Both Shoulders Referred Here Referred by. History of Present Illness Ivett Love is a 53 year old female. - Symptoms catching pain stanislaw with rest pain worse with reaching above head. - Allergy list reviewed - Problem list reviewed - Medication list reviewed - Previous history of new onset pain Injury is not work related or an automotive accident - Patient pain level from 1-10: 6 - - Review of medications documented Patient is seen today for initial visit regarding bilateral shoulder pain. She states she has had issues with her left shoulder in the past the improved but now has recurred. She states she has some pain in the right shoulder but mostly it is in her left. She denies any recent trauma or injuries. She states the pain is worse at night when she tries to sleep. 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 She has used anti-inflammatory medication adhesion which has only been minimally beneficial. Review of systems Bilateral shoulder pain Physical exam Left shoulder General Exam: The patient is awake and alert. No acute distress. Normal mood and affect for age. Well groomed and nourished Neuro: Sensation was intact to light touch over the extremity. Vascular: +2 radial pulses. No edema. Derm: No signs of active infection. No acute skin changes. Musculoskeletal: Normal gait and station. No muscle atrophy. No joint effusion. No muscle or bony deformity. Patient has pain with active forward flexion. Full passive motion. There is pain and weakness with supraspinatus and subscapularis testing. Right shoulder General Exam: The patient is awake and alert. No acute distress. Normal mood and affect for age. Well groomed and nourished Neuro: Sensation was intact to light touch over the extremity. Vascular: +2 radial pulses. No edema. Derm: No signs of active infection. No acute skin changes. Musculoskeletal: Normal gait and station. No muscle atrophy. No joint effusion. No muscle or bony deformity. Patient has pain with active forward flexion. Full passive motion. There is pain and weakness with supraspinatus testing. Imaging X-ray of the left shoulder shows calcification of the supraspinatus X-ray of the right shoulder shows no acute findings Assessment Bilateral shoulder internal derangement Therapy Bilateral shoulder The risks of the procedure were explained and verbally acknowledge by the patient. A verbal consent was obtained. Alternate treatments have also been reviewed. Skin was prepped with alcohol. 40 mg of kenalog with 2 cc of lidocaine and 2cc of plain Marcaine were injected into the subacromial bursa. This was placed just under the posterior lateral corner of the acromion. The needle was then gently withdrawn and a Band-Aid was applied. Plan Patient will continue with conservative measures. She will be placed him physical therapy we will proceed with the injections both shoulders. She will follow up with us in 5-6 weeks Past Medical/Surgical History Diagnoses: Diabetes mellitus Surgical: - Hysterectomy - History of Gallbladder - Previous Fractures Social History Not a current smoker. Current diet: No recent change in diet. Caffeine use: Caffeine use. Alcohol: Alcohol use. Drug Use: Not using drugs. Habits: Not exercising regularly. Family History Cancer Heart disease Stroke / Seizures Diabetes mellitus Systemic hypertension Review Of Systems Systemic: Not feeling tired, no recent weight loss, and no recent weight gain. Head: No headache and no sinus pain. Eyes: No vision problems and no Cataracts. Glasses/Contacts. No Glaucoma. Otolaryngeal: No hearing loss and no tinnitus. Cardiovascular: No chest pain or discomfort, no palpitations, and no Hypertension. High Cholesterol. Pulmonary: No daytime asthma symptoms and no chronic cough. No wheezing. Gastrointestinal: No heartburn and no abdominal pain. No Indigestion, no Peptic Ulcer, no GI Stomach Bleed, no Ulcers, and no Acid Reflux. Endocrine: No hot flashes and no muscle weakness. Diabetes. No Hypothyroid and no Hyperthyroid. Hematologic: No easy bleeding, no tendency for easy bruising, and no Anemia. Musculoskeletal: No Arthritis and no lower back pain. No soft tissue swelling and no localized joint pain. Neurological: No dizziness, no convulsions, and no numbness. Psychological: No anxiety, no emotional lability, no depression, and no insomnia. Not crying for no reason. Skin: No dry skin. No Ulcers, no Scars, and no rash. Allergic and Immunologic: No complaint of seasonal allergic reaction. Assessment - Overweight Previous Tests Laboratory Studies: Neuro-Electrical Functions: EMG. Basic Management Procedures And Services: - Brace Counseling/Education - Tobacco non-user - Use of tobacco assessment performed - Lose weight Plan StartCited - Overweight Therapy/Physical Therapy: Shoulder Instructions: See PT order attached EndCited Notes This dictation was done with voice recognition software and may contain errors and omissions.
--- OUTSIDE RECORDS SUMMARY | 2024-07-31 07:06 | XMS_ITS | Clinical Summary ---
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 Role Phone Mario MORRISON, Kehinde Unavailable [phone] Rossana Charles APRN Unavailable Leslye vailable Reason for Visit and Chief Complaint The Chief Complaint is: JANNET shoulder pain Problems Includes: Problems addressed during this encounter and other active Problems All Visits Onset Date Resolved Date Provider Condition S tatus Joint Pain, Localized in Both Shoulders 04/26/2024 Lamont Valentin PA-C Active Last Documented On 5 8:51AM ; [facility], [facility] Plan of Treatment Instructions to patient Lose weight Last Documented On 5 3:04PM ; [facility], [facility] Assessments Includes: Assessments from this encounter No Assessments Recorded Instructions Includes: Instructions from this encounter Instructions to patient Lose weight Last Documented On 5 3:04PM ; [facility], [facility] Medical Equipment - Implanted Devices Includes: Current Devices No Medical Equipment Recorded Medications Administered Includes: Administered Medications from this encounter No Administered Medications Recorded Vital Signs Includes: Vital Signs from this encounter Vital Name 06/12/2024 03:05P Height (in) 66 Weight (lb) 190 Body Mass Index 30.7 Body Surface Area 2 Note: bfj Last Documented: On 06/12/2024 3:05PM ; [facility], [facility] Results Includes: Results discussed during this encounter No Results Recorded For Specified Dates History of Present Illness Includes: History of Present Illness from this encounter ANNA Love is a 54 year old female. [...] us once the MRI has been completed Social History Description Last Updated Alcohol use 04/26/2024 Last Documented On 5 3:04PM ; [facility] Caffeine use 04/26/2024 Last Documented On 5 3:04PM ; [facility] No recent change in diet 04/26/2024 Last Documented On 5 3:04PM ; [facility] Not a current smoker. 04/26/2024 Last Documented On 5 3:04PM ; [facility] Not exercising regularly 04/26/2024 Last Documented On 5 3:04PM ; [facility] Not using drugs 04/26/2024 Last Documented On 5 3:04PM ; [facility] Smoking Status Unknown Procedures and Surgical History Surgical History Last Updated History of History of Gallbladder 2024 Last Documented On 5 3:04PM ; [facility], [facility] History of hysterectomy 04/26/2024 Last Documented On 5 3:04PM ; [facility] History of Previous Fractures 04/26/2024 Last Documented On 5 3:04PM ; [facility] Medical History Includes: Medical History addressed during this encounter Description Last Updated History of diabetes mellitus 04/26/2024 Last Documented On 5 3:04PM ; [facility] Family History Includes: Family History addressed during this encounter Description Last Updated Diabetes mellitus 04/26/2024 Last Documented On 5 3:04PM ; [facility] Family history of cancer 04/26/2024 Last Documented On 5 3:04PM ; [facility] Family history of heart disease 04/26/19 25 Last Documented On 5 3:04PM ; [facility] Family history of systemic hypertension 04/26/2024 Last Documented On 5 3:04PM ; [facility] Stroke / Seizures 04/26/2024 Last Documented On 5 3:04PM ; [facility] Review of Systems Includes: Review of Systems from this encounter Systemic: Not feeling tired, no recent weight [...] Immunologic: No complaint of seasonal allergic reaction. Mental Status Includes: Mental Status from this encounter Description No anxiety Functional Status Includes: Functional Status from this encounter No Functional Status Recorded Physical Exam Includes: Physical Exam from this encounter Encounters Encounter Provider Location Date Check-In Time Check-Out Time Diagnosis Follow Up Lamont Valentin PA-C [facility] 2:07PM 3:14PM Insurance Includes: Active Insurance Policies Plan Name Member ID Group # Subscriber Relationship Effect jakob Dates 1 - [facility] [id number] Ivett Love Self Clinical Notes Includes: Clinical Notes from this encounter * Progress note Date Encounter Last Documented by 06/12/2024 Follow Up Last documented on 07/02/2024; 7:39 PM, Lamont Valentin PA-C; [facility] Active Problems & Conditions - Joint Pain, [...] - Lose weight Care Team - Rossana Charles APRN
--- OUTSIDE RECORDS SUMMARY | 2024-07-31 07:06 | XMS_ITS | Clinical Summary ---
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 Role Phone Mario MORRISON, Kehinde Unavailable [phone] Rossana Charles APRN Unavailable Leslye vailable Reason for Visit and Chief Complaint Non Physician Specified Problems Includes: Problems addressed during this encounter and other active Problems Current Visit Onset Date Resolved Date Provider Aisha ji Status Joint Pain, Localized in Both Shoulders 04/26/2024 aLmont Valentin PA-C Active Last Documented On 5 8:51AM ; [facility] Plan of Treatment Pending Tests Order Diagnosis Results Due Ordering P rovider Therapy - Physical Therapy Shoulder Overweight 04/26/24 Lamont Valentin PA-C Last Documented On 5 9:08AM ; [facility] Instructions to patient Lose weight Last Documented On 5 8:56AM ; [facility] Assessments Includes: Assessments from this encounter Findings - Overweight - Last Documented On 04/26/2024 9:12AM ; [facility], [facility] Instructions Includes: Instructions from this encounter Instructions to patient Lose weight Last Documented On 5 8:56AM ; [facility] Medical Equipment - Implanted Devices Includes: Current Devices No Medical Equipment Recorded Medications Administered Includes: Administered Medications from this encounter No Administered Medications Recorded Results Includes: Results discussed during this encounter No Results Recorded For Specified Dates History of Present Illness Includes: History of Present Illness from this encounter HPI Ivett Love is a 53 year old [...] follow up with us in 5-6 weeks Social History Description Last Updated Alcohol use 04/26/2024 Last Documented On 5 9:12AM ; [facility], [facility] Caffeine use 04/26/2024 Last Documented On 5 9:12AM ; [facility], [facility] No recent change in diet 04/26/2024 Last Documented On 5 9:12AM ; [facility], [facility] Not a current smoker. 04/26/2024 Last Documented On 5 9:12AM ; [facility], [facility] Not exercising regularly 04/26/2024 Last Documented On 5 9:12AM ; [facility], [facility] Not using drugs 04/26/2024 Last Documented On 5 9:12AM ; [facility], [facility] Smoking Status Unknown Procedures and Surgical History Includes: Procedures from this encounter Procedures Code Diagnosis Performing Provider Service Location Service Date DRAIN/INJECT, JOINT/BURSA (Bilateral Procedure) Pain in right shoulder, Pain in left shoulder Lamont Valentin [facility] 04/26/2024 Last Documented On 5 10:18AM ; [facility] Triamcinolone/Kenalog, 10mg per cc [id number] Pain in right shoulder, Pain in left shoulder Lamont Valentin [facility] 04/26/2024 Last Documented On 5 10:18AM ; [facility], [facility] X-RAY EXAM OF SHOULDER 2-3 VIEWS (LEFT) [id number] [facility] Last Documented On 5 10:18AM ; [facility] X-RAY EXAM OF SHOULDER 2-3 VIEWS (RIGHT) [id number] [facility] in [facility] Last Documented On 5 10:18AM ; [facility], [facility] EMG [id number] Last Documented On 5 8:53AM ; [facility], [facility] brace Last Documented On 5 8:53AM ; [facility] Surgical History Last Updated History of History of Gallbladder 2024 Last Documented On 5 9:12AM ; [facility] History of hysterectomy 04/26/2024 Last Documented On 5 9:12AM ; [facility] History of Previous Fractures 04/26/2024 Last Documented On 5 9:12AM ; [facility] Medical History Includes: Medical History addressed during this encounter Description Last Updated History of diabetes mellitus 04/26/2024 Last Documented On 5 9:12AM ; [facility] Family History Includes: Family History addressed during this encounter Description Last Updated Diabetes mellitus 04/26/2024 Last Documented On 5 9:12AM ; [facility] Family history of cancer 04/26/2024 Last Documented On 5 9:12AM ; [facility] Family history of heart disease 04/26/19 Last Documented On 5 9:12AM ; [facility] Family history of systemic hypertension 04/26/2024 Last Documented On 5 9:12AM ; [facility] Stroke / Seizures 04/26/2024 Last Documented On 5 9:12AM ; [facility] Review of Systems Includes: Review of Systems [...] Exam Includes: Physical Exam from this encounter No Physical Exam Recorded Encounters Encounter Provider Location Date Check-In Time Check-Out Time Diagnosis Non Physician Specified Lamont Valentin PA-C [facility] 04/26/19 25 8:26AM 9:11AM Overweight Insurance Includes: Active Insurance Policies Plan Name Member ID Group # Subscriber Relationship Effect jakob Dates 1 - [employer] [id number] Ivett Love Self Clinical Notes Includes: Clinical Notes from this encounter * Progress note Date Encounter Last Documented by 04/26/2024 Non Physician Specified Last doc umented on 04/26/2024; 9:12 AM, Lamont Valentin PA-C; [facility], [facility] Active Problems & Conditions - Joint [...]
--- OUTSIDE RECORDS SUMMARY | 2024-07-31 07:06 | XMS_ITS | Data Portability ---
Author Organization [facility] Address [address] [place] [address] Assessment Encounter Date Assessment Date Assessment LastModified by Organization Details LastModified Time 09/17/2022 09/17/2022 PREOPERATIVE DIAGNOSIS: Right parotid mass. POSTOPERATIVE DIAGNOSIS: Pathology pending, suspect periparotid nodule. PROCEDURE: Partial parotidectomy, right side. ANESTHESIA: General endotracheal anesthesia. ESTIMATED BLOOD LOSS: Less than 25 mL. SURGEON: Ricardo Silva III, MD INDICATIONS: Ivett is a 52-year-old who had a mass that developed several months ago on the right side near the parotid area. This was palpated, noted to be at least 6 to 8 mm. It was somewhat firm, yet mobile. 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 Therefore, we did recommend removal. I want to purchase via parotid dissection in the case this was within the depths of the parotid gland. Facial nerve monitoring was also recommended and done throughout the case. OPERATIVE NOTE: The patient was brought to the Operating Room and placed under general endotracheal anesthesia. She did not receive any paralytic agent. The right facial area was prepared and draped in the usual fashion. I also used the [facility] monitor for major branches. The facial nerve were monitored throughout the case and a grand stimulating electrode were also placed. I pre-injected 1% lidocaine with epinephrine, injected into the natural skin crease around the preauricular area extending around the lobule down into the neck in the natural crease here. After the area was prepared and draped, an incision was carried down through the skin and subcutaneous tissue until we are down to the parotid fascia. I elevated the supraparotid fascial plane anteriorly. When I was working inferiorly, I was able to palpate the mass. It did appear to be somewhat separate from the parotid gland itself. I was able to carefully dissect this out and ligate its blood supply. The mass was dissected free from the parotid tissue without breach of the mass itself. I do not palpate any other lesions within the parotid or in the periparotid area or in the jugulodigastric area. Once the mass was removed, it was then sent for pathologic evaluation. The wound was irrigated with sterile water solution. I then closed the incision without a drain initially with 4-0 Monocryl in the subcutaneous layer and then I used tissue glue over the skin and the skin edges. Pressure dressing was applied. The patient was then awakened in the operating room and taken to the recovery room in good condition. [email or web address] Not available 09/18/2022 14:26:34 Plan of Treatment Reminders Order Date Submit Date Provider Last Modified By Organization Details Last Modified Time Details Appointments None record ed. Lab None record ed. Referral None record ed. Procedures None record ed. Surgeries None record ed. Imaging None record ed. Medication Orders None record ed. Patient TargetsNo targets recorded. Patient InstructionsNo instructions recorded. Reason for Referral None Reported. Results Created Date Observation Date Name Description Value Unit Range Abnormal Flag Note LastModifiedBy Organization Detail LastModifiedTime 09/18/19 23 09/17/2022 SURGI LEANDRO surgical SEE BELOW normal Depar tment of Patho logy Surgi leandro Patho logy Repor t NAME: GABE WENDYROBERTO TYLER PATH. :[id number] Copy to: Diagn osis: Right perip aroti d mass, excis ion: One (1) benig n lymph node. SOURC E OF SPECI MEN: PAROT ID , RIGHT KIMMY- PAROT ID MASS CLINI LEANDRO INFOR MATIO N: SUBMA NDIBU LAR SWELL ING Gross Descr iptio n: Recei harvey in forma tracy label ed with the patie nt's name and desig nated as righ t perip aroti d mass is a 1.7 x 1.2 x 0.6 cm pink- pierre soft tissu e fragm ent. The speci men is inked blue. Secti oning revea ls a pierre, glist ening , focal ly hemor rhagi c cut surfa ce. Entir cha submi tted in two casse ttes. MT 09/17 03:40 PM Micro scopi c Descr iptio n: Secti ons demon strat e multi ple tissu e secti ons of a lymph node witho ut evide nce of granu lomat ous infor matio n or metas tatic tumor . The lymph node is compo sed of an admix ture of small , matur e-adriana earin g lymph ocyte s and histi ocyte s. No atypi leandro lymph oid infil trate is seen. No saliv maninder gland tissu e is prese nt. SONYA PEARSON M.D. Do d Out Date: 09/18 09:26 Page 1 of 1 Not Available [facility] [address] [place] [address], [place], [address], 09/18/2022 09:27:03 09/16/19 23 09/10/2022 elect chipar diogr am No observ ation record ed. [facility] Not Available 2022 09:25:36 Result Notes None recorded. Procedures Surgical History None recorded. Imaging Results Imaging Date Name Status LastModified by Organization Details LastModified Time 09/10/2022 electrocardiogram completed [facility] Informa tion not available 09/15/2022 09:25:36 Procedure Notes None recorded. Medical Equipment None Reported. Allergies No known drug allergies Medications Name Sig Start Date Stop Date Status Note LastModified by Organization Details LastModified Time hydrocodone 7.5 mg-acetamino phen 325 mg tablet TAKE 1 TAB EVERY 6 HOURS NEEDED FOR PAIN NOT CONTROLLED BY TYLENOL/IBU PROFEN 2022 active Not Available Not Available Not Avai lable ondansetron 4 mg disintegrati ng tablet USE 1 TAB NEEDED EVERY 6 HOURS FOR NAUSEA 2022 active Not Available Not Available Not Avai lable rosuvastatin 20 mg tablet Take 1 tablet every day by oral route. active Not Available Not Available No t Available metformin ER 1,000 mg tablet,exten ded release 24 hr Take by oral route. active Not Available Not Available Not Available bupropion HCl active Not Available Not Available Not Available levocetirizi ne active Not Available Not Available Not Available dapagliflozi n propanediol active Not Available Not Available Not Available Flonase Allergy Relief active Not Available Not Available Not Available Ozempic 1 mg/dose (4 mg/3 mL) subcutaneous pen injector Inject by subcutaneou s route. active Not Available Not Available No t Available Vitals None Recorded Social History None recorded. Functional Status None recorded. Mental Status None recorded. Family History Nothing Reported. Medical History No medical history recorded. Gynecological HistoryNo gynecological history recorded. Obstetrics History GPAL:G 0 P 0 0 0 0 Past Encounters Encounter ID Performer Location Encounter Start Date Encounter Closed Date Diagnosis/Indication Diagnosis SNOMED-CT Code Diagnosis ICD10 Code Diagnosis Note [id number] RICARDO SILVA III, MD SURGERY SCHEDULE [address] [place] [address] 09/17/2022 12:11:16 09/17/2022 12:12:02 Health Concerns Section Related Observation LastModified by Organization Detai ls LastModified Time None Recorded Concern Status LastModified by Organization Details LastModified Time None Recorded Advance Directives Directive None Recorded Payers Encounter Date Sequence Insurance Name Policy Number Policy Doshi Covered Member ID Doshi Member ID Guarantor Name 09/17/2022 1 [facility] [id number] Ivett Love [id number] Ivett Love OBGyn Episode No OBEpisode recorded.
[2024-07-31 07:55] LABS: Chloride 106 mmol/L (98-107); Hemoglobin A1C 8.2 % (4.0-6.0); Sodium 141 mmol/L (136-145)
[2024-07-31 07:56] LABS: Potassium 4.1 mmoL/L (3.5-5.1)
[2024-07-31 07:58] LABS: Blood Urea Nitrogen 14 mg/dl (7-17); Estimated Glomerular Filt Rate 128 ml/min (>60); GFR (African American) 155 ML/MIN (>60)
[2024-07-31 07:59] LABS: Anion Gap 13.1 mEq/L (5-15); Carbon Dioxide 26 mmol/L (22.0-30.0); Glucose 202 mg/dl (74-100)
== END 2024-07-31 23:59 | disposition home or self-care (01) ==
LOC: LAB 07:04
PROVIDERS: PCP Nurse Practitioner Family; Visit Provider Nurse Practitioner Family
DX: E11.29 Type 2 diabetes mellitus with other diabetic kidney complication (principal)
CPT/HCPCS: 36415; 80048; 83036

== ENCOUNTER 2024-10-16 08:00 | Outpatient (RCR) | payer OTHER, SELFPAY | END 2024-10-16 23:59 | disposition home or self-care (01) | LOC: OT 08:00 | PROVIDERS: PCP Nurse Practitioner Family; Visit Provider Physician Assistant Surgical | DX: Z47.89 Encounter for other orthopedic aftercare (principal); Z98.890 Other specified postprocedural states | CPT/HCPCS: 97014; 97032; 97110; 97140; 97166; G0283 ==

== ENCOUNTER 2024-11-14 08:00 | Outpatient (RCR) | payer OTHER, SELFPAY | END 2024-11-14 23:59 | disposition home or self-care (01) | LOC: OT 08:00 | PROVIDERS: PCP Nurse Practitioner Family; Visit Provider Physician Assistant Surgical | DX: Z47.89 Encounter for other orthopedic aftercare (principal) | CPT/HCPCS: 97014; 97032; 97035; 97110; 97140; 97168; 97530; G0283 ==

== ENCOUNTER 2024-11-30 08:00 | Outpatient (RCR) | payer OTHER, SELFPAY | END 2024-11-30 23:59 | disposition home or self-care (01) | LOC: OT 08:00 | PROVIDERS: PCP Nurse Practitioner Family; Visit Provider Physician Assistant Surgical | DX: M75.100 Unspecified rotator cuff tear or rupture of unspecified shoulder, not specified as traumatic (principal) | CPT/HCPCS: 97014; 97110; 97140; 97168; 97530; G0283 ==

== ENCOUNTER 2025-02-07 07:43 | Outpatient (CLI) | payer OTHER, SELFPAY ==
--- OUTSIDE RECORDS SUMMARY | 2024-07-22 17:30 | XMS_ITS ---
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 If intended option is not shown, discontinue and re-order from Quick Search* Next Appt Details Provider Name:Rossana washburn, 06/07/2025 03:45:00 PM, [address] [facility] [address] [facility], [address], [place], [address], Progress Notes * Ivett EDOUARDDOB:[birth year] (54 yo F)Acc No.[id number]:07/22/2024 Patient: Ivett ACOSTA Provider: Slick Sánchez :1970 A ge:54 Y S ex:Female Date:07/22/2024 Address:[address] [place] [address], [place], [id number] Pcp:Shashank Bush Subjective: * Chief Complaints: * [facility] . [facility] * Medical History: * Medications: [...] *Please review and pick correct [facility]. If intended option is not shown, discontinue and re-order from Quick Search*. * * Electronic signature of Prov ider Migration on 02/07/2025 at 07:45 AM EDT Sign off status: Pending * Provider: Slick lee Migration Date: 0 07/22/2024 Generated for Eric hutson/Jamison/Cameron on: 1 07:45 AM EDT
--- OUTSIDE RECORDS SUMMARY | 2025-02-05 12:15 | XMS_ITS ---
Author Organization [facility] Address [address] [place] [address] Care Team Providers Care Mobile Phone Salesperson Name Role Phone Shashank Bush Primary Care Provider [phone] Rossana Charles [phone] Allergies No Known Allergies REASON FOR VISIT 2 mo FU & check A1C Medications Medication SIG (Take, Route, Frequency, Duration) Notes Start Date End Date Status Dexcom G7 Sensor - use for CGM and betancourt ge every 10 days; Duration: 30 days DX: E11.11/30/2024 Active Dexcom G7 Tobacco Curer - use for CGM and sumit nge every 10 days; Duration: 30 days DX: E11.11/30/2024 Active Mounjaro 15 MG/0.5ML 15 mg Subcutaneous [...] 02/05/2025 Encounters Encounter Location Date Provider Diagnosis [facility] [address] [place] [address] 02/05/2025 Rossana Charles Encounter for immunization Z23 [...] Treatment Pending Test Test Name Order Date M-Basic Metabolic Panel 02/05/2025 M-Hemoglobin A1C 02/05/2025 Mammogram: Screening 02/05/2025 Next Appt Details Follow Up: 3 Months,nhann, Sara son: Provider Name:Rossana washburn, 06/07/2025 03:45:00 PM, [address], [address], [place], [address], Progress Notes * Ivett EDOUARDB:[birth year] (54 yo F)Acc No.[id number]:02/05/2025 Progress Notes Patient: Ivett ACOSTA Provider: PERRY Márquez :1970 A ge:54 Y S ex:Female Date:02/05/2025 Address:[address] [place] [address] [place], [id number] Pcp:Shashank Bush Subjective: * Chief Complaints: * [...] , Depression, 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 * Surgical History: [...] aternal Grand Mother: , BREAST CANCER. S elaine: alive, brother-. Chacho garcia: alive. 3 brother(s) , 5 sister(s) - healthy. 2 daughter(s) - healthy. . * Social History: R ecreational drug use: no. Exercise: no. Home smoke detector use: yes. Caffeine: yes, frequency:16 OZ QD. Living Will: No. Alcohol: socially. Sexually active: yes. Travel outside [place]: no. Occupation: [employer]. Tobacco Control (Standard) T obacco use: F [...] MOUTH ONCE DAILY , Taking Dexcom G7 Tobacco Curer - Device use for CGM and change [...] complication - E11.29 (Primary) ? 2 . E ncounter for immunization - Z23 3 . V isit for screening mammogram - Z12.31 Plan: * Treatment: 2. V isit for screening mammogram I maging: Mammogram: Screening * Immunizations: PCV-21 (pneumococcal 21-valent conjugate vaccine) : 0.5 mL (Dose No:1) (Route: Intramuscular) given by DANA Rodrigez on Left Deltoid (Encounter for immunization) * Procedure Codes: 9 0684 PCV21 VACCINE IM, 93890 ADMINISTRATION IMMUNIZATION ONE VACCINE * Follow Up: 3 Months,prn * * Sign off status: Completed true * Provider: PERRY Márquez Date: Generated for Eric hutson/Jamison/Cameron on: 07:45 AM EDT History and Physical Notes * Examination Category [...]
--- OUTSIDE RECORDS SUMMARY | 2025-02-07 07:46 | XMS_ITS | Clinical Summary ---
Author Organization Healthcare Address [address] [id number] Care Team Providers Care Manager Sterile Name Role Phone Shashank Bush MD Primary Care Provider + [phone] Family History Medical History Relation Name Comments Diabetes Father Hypertension Father Melanoma Father Transient ischemic attack Father Dementia Mother Diabetes Mother Heart failure Mother Stroke Mother Relation Name Status Comments Father Mother Social History Tobacco Use Types Packs/Day Years Used Date Smoking Tobacco: Former Comments Unknown Sex and Gender Information Value Date Recorded Sex Assigned at Not on file Legal Sex Female 8:27 PM EDT Gender Identity Not on file Sexual Orientation Not on file Last Filed Vital Signs Vital Sign Reading Time Taken Comments Blood Pressure 129/88 05/31/2018 4:05 PM EST Pulse 99 05/31/2018 4:05 PM EST Temperature - - Respiratory Rate - - Oxygen Saturation - - Inhaled Oxygen Concentration - - Weight 98.9 kg (217 lb 15.9 oz) 05/31/2018 4:05 PM EST Height 167.6 cm (5' 6 ) 05/31/2018 4:05 PM EST Body Mass Index 35.18 05/31/2018 4:05 PM EST Plan of Treatment Not on file Care Teams Manager Sterile Relationship Specialty Start Date End Date Shashank Bush MD [address] [place] [address] [place] [id number] PCP - General 08/30/20
--- OUTSIDE RECORDS SUMMARY | 2025-02-07 07:46 | XMS_ITS | Patient Health Record ---
Author Organization [facility] Address [address] [place] [address] Care Team Providers Care Hydro Plant Operator Name Role Phone Shashank Bush Primary Care Provider [phone] Rossana Charles Unavailable [phone] Migration, Provider Unavailable Unavailable Allergies No Known Allergies Results Component Value Reference Range Notes M-Hemoglobin A1C Reviewed date:05/17/2024 04:40:44 PM Interpretation: Performing Lab: Notes/Report: HGBA1C 7.6 4.0-6.0 % < 6% Non-Diabetic Level < 7% Controlled Diabetic Level > 8% Poorly Controlled Diabetic Level NVC/EMG STUDY OF UPPER EXTRE MITIES Reviewed date:04/07/2024 12:52:55 PM Interpretation: Performing Lab: Notes/Report: M-Comprehensive Metabolic Pa dilma Reviewed date:05/17/2024 04:40:44 PM Interpretation: Performing Lab: Notes/Report: NA 140 136-145 mmol/L K 4.7 3.5-5.1 mmoL/L CL 108 98-107 mmol/L CO2 25 22.0-30.0 mmol/L GAP 11.7 5-15 mEq/L BUN 16 7-17 mg/dl CREATT 0.60 0.52-1.04 mg/dl GFRAA 126 >60 ML/MIN EGFR 104 >60 ml/min GLU 164 74-100 mg/dl CA 9.5 8.4-10.2 mg/dl BILIT 0.8 0.2-1.3 mg/dl AST 23 14-36 U/L ALT 21 12-78 U/L TP 6.3 6.3-8.2 g/dl ALB 4.2 3.5-5.0 g/dl GLOB 2.1 1.3-3.2 g/dL AGRATIO 2.0 1.1-1.8 ALP 114 38-126 U/L M-Basic Metabolic Panel Reviewed date:07/31/2024 08:11:51 AM Interpretation: Performing Lab: Notes/Report: NA 141 136-145 mmol/L K 4.1 3.5-5.1 mmoL/L CL 106 98-107 mmol/L CO2 26 22.0-30.0 mmol/L GAP 13.1 5-15 mEq/L BUN 14 7-17 mg/dl CREATT 0.50 0.52-1.04 mg/dl GFRAA 155 >60 ML/MIN EGFR 128 >60 ml/min GLU 202 74-100 mg/dl CA 9.0 8.4-10.2 mg/dl M-Hemoglobin A1C Reviewed date:07/31/2024 08:12:03 AM Interpretation: Performing Lab: Notes/Report: HGBA1C 8.2 4.0-6.0 % < 6% Non-Diabetic Level < 7% Controlled Diabetic Level > 8% Poorly Controlled Diabetic Level M-Lipid Panel Reviewed date:05/17/2024 04:40:44 PM Interpretation: Performing Lab: Notes/Report: Patient Fasting? Y TRIG 71 30-150 mg/dl CHOL 106 140-200 mg/dl DLDL 48.09 100-129 mg/dL VLDL 14 0-40 mg/dL HDL 49 40-60 mg/dl CHLHDL 2.2 1-3.5 H-MALBCREA Reviewed date:05/17/2024 04:40:44 PM Interpretation: Performing Lab: Notes/Report: Units: mg/g creat Normal: 0 - 29 Moderately Increased: 30 - 300 Severely Increased: >300 UCREAT 50 Not Estab. mg/dL Random urine reference range not established. 24 hour urine samples recommended. 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 Machine Operator - use for CGM and sumit nge every 10 days; Duration: 30 days DX: E1111/30/2024 Active Mounjaro 15 MG/0.5ML 15 mg Subcutaneous once a week; Duration: 28 days 11/30/2024 Active Farxiga 10 MG TAKE ONE TABLET BY MOUTH ONCE DAILY; Duration: 90 Active traZODone HCl 100 mg TAKE ONE TABLET BY MOUTH EVERY DAY AT BEDTIME NEEDED FOR INSOMNIA; Duration: 30 Active buPROPion HCl ER (XL) 300 MG 1 tab(s) orally every 24 hours; Duration: 90 days Active Fluticasone Propionate 50 MCG/ACT 1 spray each nostril twice a day; Duration: 30 day(s) prn Active Immunizations Vaccine Route Administration Date Status Comme nts Pneumovax 23 IM Intramuscular 06/16/2018 Administered PCV-21 (pneumococcal 21-valent conjugate vaccine) IM Intramuscular 02/05/2025 Administered Hep A Adult 2 Dose IM Intramuscular 06/16/2018 Administere d Social History Tobacco Use: Social History Observation Description Date Details (start date - stop date) Former Smoker NA - NA Tobacco Control (Standard) Question Answer Notes Tobacco use: Former smoker How long has it been since you last smoked? 6-12 months Problems Problem Type SNOMED Code ICD Code Onset Dates Problem Status W/U Status Risk Notes Problem Diabetic renal disease (724614877) Type 2 diabetes mellitus with other diabetic kidney complication (E11.29) Active confirmed Problem Tobacco user (820541183) Nicotine dependence, unspecified, uncomplicated (F17.200) Active confirmed Problem Paresthesia (finding) (79676434) Paresthesia of skin (R20.2) Active confirmed Problem Proteinuria (66459142) Proteinuria, unspecified (R80.9) Active confirmed Problem Cervical disc disorder (580011595) DDD (degenerative disc disease), cervical (M50.30) Active confirmed Problem Hyperlipidaemia (83999018) HLD (hyperlipidemia) (E78.5) Active confirmed Problem Mammogram - screening (32094954) Visit for screening mammogram (Z12.31) Active confirmed Problem Tobacco use (009639151) Tobacco use disorder (Z72.0) Active confirmed Problem Morbid obesity (126546330) Morbid obesity due to excess calories (E66.01) Active confirmed Problem Insomnia disorder related to another mental disorder (65652531) Psychophysiological insomnia (F51.04) Active confirmed Problem Peripheral edema (72714012) Peripheral edema (R60.9) Active confirmed Problem Microalbuminuria (848546723) Microalbuminuria (R80.9) Active confirmed Problem Reactive depression (32395230) Reactive depression (F32.9) Active confirmed Problem Seasonal allergic rhinitis (906487091) Seasonal allergic rhinitis, unspecified trigger (J30.2) Active confirmed Vital Signs Heart Rate 96 /min 02/05/2025 Temperature 97.6 degrees Fahrenheit 02/05/2025 Blood pressure diastolic 74 mm Hg 02/05/2025 Height 5 ft 6 in in 02/05/2025 Blood pressure systolic 116 mm Hg 02/05/2025 Weight 193.4 lbs 02/05/2025 BMI 31.21 kg/m2 02/05/2025 Encounters Encounter Location Date Provider Diagnosis [facility] [address] [place] [address] [facility] [facility] [address] [address] 07/22/2024 Provider Migration Type 2 diabetes mellitus with other diabetic kidney complication E11.29 ; Psychophysiological insomnia F51.04 and Tobacco use Z72.0 [facility] [address] [place] [address] [place] [address] 03/27/2024 Rossana Charles Paresthesia of skin R20.2 ; Type 2 diabetes mellitus with other diabetic kidney complication E11.29 ; Pain in right arm M79.601 ; Pain in left arm M79.602 ; HLD (hyperlipidemia) E78.5 ; Reactive depression F32.9 ; Psychophysiological insomnia F51.04 ; Tobacco use Z72.0 and DDD (degenerative disc disease), cervical M50.30 [facility] [address] [place] [address] 07/31/2024 Rossana Charles Acute non-recurrent sinusitis, unspecified location J01.90 and Type 2 diabetes mellitus with other diabetic kidney complication E11.29 [facility] [address] [facility] [address] [place] [address] 11/30/2024 Rossana Charles Type 2 diabetes glenna itus with other diabetic kidney complication E11.29 [facility] [address] [facility] [address] [place] [address] 02/05/2025 Rossana Charles Encounter for immuni zation Z23 ; Type 2 diabetes mellitus with other diabetic kidney complication E11.29 and Visit for screening mammogram Z12.31 [facility] [address] [facility] [address] [place] [address] 05/17/2024 Rossana Charles Type 2 diabetes glenna itus with other diabetic kidney complication E11.29 [facility] [address] [facility] [address] [place] [address] 07/28/2024 Rossana Charles Type 2 diabetes glenna itus with other diabetic kidney complication E11.29 [facility] [place] [address] [address] 10/16/2024 Rossana Charles Type 2 diabetes glenna itus with other diabetic kidney complication E11.29 [facility] [place] [address] [address] 11/08/2024 Rossana Charles [facility] [address] [facility] [address] [place] [address] 11/30/2024 Rossana Charles Type 2 diabetes glenna itus with other diabetic kidney complication E11.29 [facility] [address] [facility] [address] [place] [address] 11/30/2024 Rossana Charles Assessments Encounter Date Diagnosis (ICD Code) Assessment Notes Treatment Notes Treatment Clinical Notes Section Notes 07/22/2024 Type 2 diabetes mellitus with other diabetic kidney complication (ICD-10 - E11.29) 07/22/2024 Psychophysiological insomnia (ICD-10 - F51.04) 11/30/2024 Type 2 diabetes mellitus with other diabetic kidney complication (ICD-10 - E11.29) 02/05/2025 Encounter for immunization (ICD-10 - Z23) 03/27/2024 Type 2 diabetes mellitus with other diabetic kidney complication (ICD-10 - E11.29) Most recently 7.5, down from prior. Goal A1C < 7, she will obtain labs again prior to her next visit with her retina specialist consider trial of Mounjaro? 03/27/2024 Paresthesia of skin (ICD-10 - R20.2) 07/28/2024 Type 2 diabetes mellitus with other diabetic kidney complication (ICD-10 - E11.29) 11/30/2024 Type 2 diabetes mellitus with other diabetic kidney complication (ICD-10 - E11.29) Commend continue titration of Mounjaro and we will follow-up again in 2 months with labs at that time. If her A1c is still not less than 8 we will add basal insulin. She has been poorly compliant with monitoring her fingerstick and we have had difficulty getting her A1c to goal over the past year, trial of Dexcom if insurance will let coverage. 07/31/2024 Type 2 diabetes mellitus with other diabetic kidney complication (ICD-10 - E11.29) A1C above 8 but hasn't titrated Mounjaro, will start monthly titration. If A1C not < 7 in 4 months we did discuss starting basal insulin 07/31/2024 Acute non-recurrent sinusitis, unspecified location (ICD-10 - J01.90) 05/17/2024 Type 2 diabetes mellitus with other diabetic kidney complication (ICD-10 - E11.29) 10/16/2024 Type 2 diabetes mellitus with other diabetic kidney complication (ICD-10 - E11.29) 03/27/2024 Pain in right arm (ICD-10 - M79.601) 02/05/2025 Type 2 diabetes mellitus with other diabetic kidney complication (ICD-10 - E11.29) Continue current regimen, labs as noted. If A1C still not at goal we will add basal insulin 02/05/2025 Visit for screening mammogram (ICD-10 - Z12.31) 03/27/2024 Pain in left arm (ICD-10 - M79.602) 03/27/2024 HLD (hyperlipidemia) (ICD-10 - E78.5) goal LDL < 70 03/27/2024 Reactive depression (ICD-10 - F32.9) continue wellbutrin, and continue trazodone PRN at HS for sleep 03/27/2024 Psychophysiological insomnia (ICD-10 - F51.04) 07/22/2024 Tobacco use (ICD-10 - Z72.0) 03/27/2024 Tobacco use (ICD-10 - Z72.0) may need to lower dose of wellbutrin if side effects develop 03/27/2024 DDD (degenerative di sc disease), cervical (ICD-10 - M50.30) contributing to neck and upper extremity pain but also sounds c/w shoulder pathology, rec EMG/NVC 03/27/2024 Other 02/05/2025 Other Plan Of Treatment Pending Test Test Name Order Date H-CRP 10/10/2014 EKG : In House 03/31/2010 Echocardiogram 03/31/2010 Mammogram : Bilateral 10/10/2014 Occupational Therapy : Eval & Treatment 03/11/2016 H-CBC with AUTO DIFF 03/31/2010 H-CMP 03/31/2010 H-CMP 06/14/2017 H-CMP 10/10/2014 H-LIPID PANEL 10/10/2014 H-LIPID PANEL 06/14/2017 H-LIPID PANEL 03/31/2010 H-LIPID PANEL 05/15/2009 H-HGBA1C 06/14/2017 H-HGBA1C 10/10/2014 H-TSH 03/31/2010 H-SED RATE 10/10/2014 H-KAI PROFILE 10/10/2014 H-MICROALB/ILLUSIONIST UR 06/14/2017 M-Complete Blood Count Auto Diff 023 M-Complete Blood Count Auto Diff 019 M-Comprehensive Metabolic Panel 01/10/20 19 M-Comprehensive Metabolic Panel 06/17/19 24 M-Comprehensive Metabolic Panel 07/25/19 23 M-Comprehensive Metabolic Panel 01/16/20 23 M-Comprehensive Metabolic Panel 04/24/19 20 M-Comprehensive Metabolic Panel 03/27/20 24 M-Comprehensive Metabolic Panel 11/14/19 21 M-Comprehensive Metabolic Panel 06/05/19 22 M-Comprehensive Metabolic Panel 10/15/19 18 M-Comprehensive Metabolic Panel 09/16/19 19 M-Basic Metabolic Panel 06/16/2018 M-Basic Metabolic Panel 02/05/2025 M-Hemoglobin A1C 06/17/2023 M-Hemoglobin A1C 02/05/2025 M-Hemoglobin A1C 01/19/2019 M-Hemoglobin A1C 01/15/2023 M-Hemoglobin A1C 07/24/2022 M-Hemoglobin A1C 06/16/2018 M-Hemoglobin A1C 03/27/2024 M-Hemoglobin A1C 10/14/2017 M-Hemoglobin A1C 07/08/2020 M-Hemoglobin A1C 06/05/2021 M-Hemoglobin A1C 04/24/2019 M-Hemoglobin A1C 11/13/2020 M-Lipid Panel 11/13/2020 M-Lipid Panel 04/24/2019 M-Lipid Panel 09/15/2018 M-Lipid Panel 06/05/2021 M-Lipid Panel 10/14/2017 M-Lipid Panel 03/27/2024 M-Lipid Panel 07/24/2022 M-Lipid Panel 01/15/2023 M-Lipid Panel 06/17/2023 M-Lipid Panel 01/09/2019 M-Thyroid Stimulating Hormone 01/09/2019 M-Thyroid Stimulating Hormone 09/15/2018 M-Microalb/Creat Ratio, Rand[facility] Ur 06/05/ 022 M-Microalb/Creat Ratio, Rand Ur 018 M-Microalb/Creat Ratio, Rand Ur 11/13/ 021 M-Microalb/Creat Ratio, Rand Ur 024 M-Microalb/Creat Ratio, Rand Ur 019 M-Microalb/Creat Ratio, [facility] Ur 11/14/ 020 M-Microalb/Creat Ratio, [facility] Ur 02/14/ 018 M-Microalb/Creat Ratio, [facility] Ur 07/24/ 023 M-COVID PCR SINGLE RAPID 11/23/2019 Mammogram: Screening 02/05/2025 Next Appt Details Provider Name:Rossana Bhakta ce, 06/07/2025 03:45:00 PM, [address], [place], [address], Insurance Providers Payer Name Payer Address Payer Phone Subscriber Number Group Number Insured Name Patient Relationship to Insured Coverage Start Date Coverage End Date [employer] [address] [address] [place] [address] [id number] Ivett Love Self - patient is the insured Medications Administered Medication Instructions Date of Administration Dosage Notes Triamcinolone Acetonide 40mg Injection 10/14/2017 1 mL Medical (General) History Medical History History ICD Code type II diabetes with diabetic retinopat hy hypercholestrolemia tobacco use Right shoulder impingement, s/p bicep te ndon injection, Dr Phoenix at Depression Followed 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
--- OUTSIDE RECORDS SUMMARY | 2025-02-07 07:46 | XMS_ITS | Data Portability ---
Author Organization [facility] Address [address] [facility] [address] [place] [address] Assessment Encounter Date Assessment Date Assessment LastModified [...] the usual fashion. I also used the [facility] monitor for major branches. The facial nerve [...] Surgi leandro Patho logy Repor t NAME: ROBERTO BERNAL ERD PATH. :SS-2 [id number] 20 Copy to: Diagn osis: Right perip aroti [...] is prese nt. SONYA PEARSON M.D. Do jonas Out Date: 09/18 09:26 Page 1 of 1 Not Available [facility] [address] [place] [address], [place], [address], 09/18/2022 09:27:03 09/16/19 23 09/10/2022 elect daniella bordengr am No observ ation record ed. BARCODE Not Available 2022 09:25:36 Result Notes None recorded. Medical Equipment None Reported. [...] Diagnosis SNOMED-CT Code Diagnosis ICD10 Code Diagnosis IMO Codes Diagnosis Note [id number] RICARDO SILVA III, MD SURGERY SCHEDULE [address] [place] [phone] 09/17/2022 12:11:16 09/17/2022 12:12:02 Health Concerns Section Related Observation LastModified by Organization Detai ls LastModified Time None Recorded Concern Status LastModified by Organization Details LastModified Time None Recorded Advance Directives Directive None Recorded Payers Insurance Date Sequence Insurance Name Policy Number Policy Doshi Covered Member ID Doshi Member ID Guarantor Name 09/23/2022 1 R [id number] Ivett Love [id number] Ivett Love OBGyn Episode No OBEpisode recorded.
[2025-02-07 08:24] LABS: Blood Urea Nitrogen 13 mg/dl (7-17); Creatinine,Serum 0.50 mg/dl (0.52-1.04); Estimated Glomerular Filt Rate 128 ml/min (>60); GFR (African American) 155 ML/MIN (>60)
[2025-02-07 08:25] LABS: Calcium 9.0 mg/dl (8.4-10.2); Carbon Dioxide 24 mmol/L (22.0-30.0); Glucose 122 mg/dl (74-100)
[2025-02-07 08:28] LABS: Hemoglobin A1C 6.2 % (4.0-6.0)
[2025-02-07 08:29] LABS: Anion Gap 13.0 mEq/L (5-15); Chloride 105 mmol/L (98-107); Potassium 4.0 mmoL/L (3.5-5.1); Sodium 138 mmol/L (136-145)
== END 2025-02-07 23:59 | disposition home or self-care (01) ==
LOC: LAB 07:44
PROVIDERS: PCP Nurse Practitioner Family; Visit Provider Nurse Practitioner Family
DX: E11.29 Type 2 diabetes mellitus with other diabetic kidney complication (principal)
CPT/HCPCS: 36415; 80048; 83036

== ENCOUNTER 2025-02-21 07:53 | Outpatient (CLI) | payer OTHER, SELFPAY ==
--- OUTSIDE RECORDS SUMMARY | 2024-07-22 16:30 | XMS_ITS ---
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 Name Role Phone Shashank Bush Primary Care Provider Migration, Provider Unavailable Unavailable REASON FOR VISIT [facility] Conversion Encounter Medications Medication SIG (Take, Route, Frequency, Duration) Notes Start Date End Date Status Levocetirizine Dihydrochloride 5 MG 1 tab(s) orally once a day (in the evening); Duration: 90 days Active Crestor 20 MG 1 tab(s) orally once a day; Duration: 90 days Active VARENICLINE STARTER PACK 0.5 MG-1 MG DIRECTED ORALLY DIRECTED; Duration: 30 DAYS *Please review for potential replacement for e-prescription and drug interaction check* 03/27/2024 Active traZODone HCl 100 MG 100 mg orally once a day at bedtime as needed for insomnia; Duration: 30 days Active OZEMPIC 8 MG/3 ML (2 MG DOSE) 2 MG SUBCUTANEOUSLY ONCE A WEEK; Duration: 28 DAYS please disregard 1mg script *Please review for potential replacement for e-prescription and drug interaction check* 03/27/2024 Active Mounjaro 5 MG/0.5 ML INJECT THE CONTENTS OF 1 PEN (5 MG / 0.5ML) SUBCUTANEOUSLY ONCE A WEEK; Duration: 28 *Please review and pick correct strength-formulat ion from [employer] options. If intended option is not shown, discontinue and re-order from Quick Search* Active metFORMIN HCl ER 500 MG TAKE FOUR TABLETS BY MOUTH ONCE DAILY; Duration: 90 Active Fluticasone Propionate 50 MCG/ACT 1 spray each nostril twice a day; Duration: 30 day(s) Active Farxiga 10 MG TAKE ONE TABLET BY MOUTH ONCE DAILY; Duration: 90 Active buPROPion HCl ER (XL) 300 MG 1 tab(s) orally every 24 hours; Duration: 90 days Active Encounters Encounter Location Date Provider Diagnosis [facility] [address] [place] [address] 07/22/2024 Provider Migration Type 2 diabetes mellitus with other diabetic kidney complication E11.29 ; Psychophysiological insomnia F51.04 and Tobacco use Z72.0 Assessments Encounter Date Diagnosis (ICD Code) Assessment Notes Treatment Notes Treatment Clinical Notes Section Notes 07/22/2024 Type 2 diabetes mellitus with other diabetic kidney complication (ICD-10 - E11.29) 07/22/2024 Psychophysiological insomnia (ICD-10 - F51.04) 07/22/2024 Tobacco use (ICD-10 - Z72.0) Plan Of Treatment Medication Medication Name Sig Start Date Stop Date Notes VARENICLINE STARTER PACK 0.5 MG-1 MG DIRECTED ORALLY DIRECTED; Duration: 30 DAYS 03/27/2024 *Please review for potential replacement for e-prescription and drug interaction check* traZODone HCl 100 MG 100 mg orally once a day at bedtime as needed for insomnia; Duration: 30 days OZEMPIC 8 MG/3 ML (2 MG DOSE) 2 MG SUBCUTANEOUSLY ONCE A WEEK; Duration: 28 DAYS 03/27/2024 please disregard 1mg script *Please review for potential replacement for e-prescription and drug interaction check* Mounjaro 5 MG/0.5 ML INJECT THE CONTENTS OF 1 PEN (5 MG / 0.5ML) SUBCUTANEOUSLY ONCE A WEEK; Duration: 28 *Please review and pick correct strength-formulation from [employer] options. If intended option is not shown, discontinue and re-order from Quick Search* Next Appt Details Provider Name:Rossana washburn, 06/07/2025 03:45:00 PM, [address] [facility], [address], [place], [address], Progress Notes * Ivett EDOUARDDOB:[birth year] (54 yo F)Acc No.[id number]:07/22/2024 Patient: Ivett ACOSTA Provider: Slick Sánchez :1970 A ge:54 Y S ex:Female Date:07/22/2024 Address:[address] [place] [address], [place], [id number] Pcp:Shashank Bush Subjective: * Chief Complaints: * [facility] . [facility] * Medical History: * Medications: T aking Fluticasone Propionate 50 MCG/ACT Suspension 1 spray each nostril twice a day , Taking metFORMIN HCl ER 500 MG Tablet Extended Release 24 Hour TAKE FOUR TABLETS BY MOUTH ONCE DAILY , Taking buPROPion HCl ER (XL) 300 MG Tablet Extended Release 24 Hour 1 tab(s) orally every 24 hours , Taking Farxiga 10 MG Tablet TAKE ONE TABLET BY MOUTH ONCE DAILY , Taking Crestor 20 MG Tablet 1 tab(s) orally once a day , Taking Levocetirizine Dihydrochloride 5 MG Tablet 1 tab(s) orally once a day (in the evening) Objective: * Vitals: Assessment: * Assessment: 1. T ype 2 diabetes mellitus with other diabetic kidney complication - E11.29 (Primary) ? 2 . P sychophysiological insomnia - F51.04 3 . T obacco use - Z72.0? Plan: * Treatment: 2. P sychophysiological insomnia Start traZODone HCl Tablet, 100 MG, 100 mg, orally, once a day at bedtime as needed for insomnia, 30 days, 30, Refills 2. 3. T obacco use Start VARENICLINE STARTER PACK TABLET, 0.5 MG-1 MG, DIRECTED, ORALLY, DIRECTED, 30 DAYS, 1 PACK, Refills 0, Notes to Pharmacist: *Please review for potential replacement for e-prescription and drug interaction check*. 4. O thers Start Mounjaro SOLUTION, 5 MG/0.5 ML, INJECT THE CONTENTS OF 1 PEN (5 MG / 0.5ML) SUBCUTANEOUSLY ONCE A WEEK, 28, 2 MILLILITER, Refills 0, Notes to Pharmacist: *Please review and pick correct strength-formulation from [facility] options. If intended option is not shown, discontinue and re-order from Quick Search*. * * Electronic signature of Prov ider Migration on 02/21/2025 at 07:55 AM EST Sign off status: Pending * Provider: Slick lee Migration Date: 0 07/22/2024 Generated for Eric hutson/Jamison/Cameron on: 1 04/23/2024 07:55 AM EST
--- OUTSIDE RECORDS SUMMARY | 2025-02-05 11:15 | XMS_ITS ---
Author Organization [facility] Address [address] [place] [address] Care Team Providers Care Service Desk Specialist Name Role Phone Shashank Bush Primary Care Provider Rossana Charles Unavailable [phone] Allergies No Known Allergies Results Component Value Reference Range Notes M-Basic Metabolic Panel Reviewed date:02/07/2025 03:42:28 PM Interpretation: Performing Lab: Notes/Report: NA 138 136-145 mmol/L K 4.0 3.5-5.1 mmoL/L CL 105 98-107 mmol/L CO2 24 22.0-30.0 mmol/L GAP 13.0 5-15 mEq/L BUN 13 7-17 mg/dl CREATT 0.50 0.52-1.04 mg/dl GFRAA 155 >60 ML/MIN EGFR 128 >60 ml/min GLU 122 74-100 mg/dl CA 9.0 8.4-10.2 mg/dl M-Hemoglobin A1C Reviewed date:02/07/2025 03:42:28 PM Interpretation: Performing Lab: Notes/Report: HGBA1C 6.2 4.0-6.0 % < 6% Non-Diabetic Level < 7% Controlled Diabetic Level > 8% Poorly Controlled Diabetic Level REASON FOR VISIT 2 mo FU & check A1C Medications Medication SIG (Take, Route, Frequency, Duration) Notes Start Date End Date Status Dexcom G7 Sensor - use for CGM and betancourt ge every 10 days; Duration: 30 days DX: E11.29 11/30/2024 Active Dexcom G7 Dairy Frozen Manager - use for CGM and sumit nge every 10 days; Duration: 30 days DX: E11.29 11/30/2024 Active Mounjaro 15 MG/0.5ML 15 mg Subcutaneous once a week; Duration: 28 days 11/30/2024 Active Farxiga 10 MG TAKE ONE TABLET BY MOUTH ONCE DAILY; Duration: 90 Active traZODone HCl 100 mg TAKE ONE TABLET BY MOUTH EVERY DAY AT BEDTIME NEEDED FOR INSOMNIA; Duration: 30 Active Levocetirizine Dihydrochloride 5 MG 1 tab(s) orally once a day (in the evening); Duration: 90 days Active metFORMIN HCl ER 500 MG TAKE FOUR TABLET S BY MOUTH ONCE DAILY Active Crestor 20 MG 1 tab(s) orally once a day; Duration: 90 days Active buPROPion HCl ER (XL) 300 MG 1 tab(s) orally every 24 hours; Duration: 90 days Active Fluticasone Propionate 50 MCG/ACT 1 spray each nostril twice a day; Duration: 30 day(s) prn Active Immunizations Vaccine Route Administration Date Status Comme nts PCV-21 (pneumococcal 21-valent conjugate vaccine) IM Intramuscular 02/05/2025 Administered Social History Tobacco Use: Social History Observation Description Date Details (start date - stop date) Former Smoker NA - NA Tobacco Control (Standard) Question Answer Notes Tobacco use: Former smoker How long has it been since you last smoked? 6-12 months Vital Signs Temperature 97.6 degrees Fahrenheit 02/06/20 25 Blood pressure systolic 116 mm Hg 02/06/20 25 Blood pressure diastolic 74 mm Hg 025 Heart Rate 96 /min 02/05/2025 Height 5 ft 6 in in 02/05/2025 Weight 193.4 lbs 02/05/2025 BMI 31.21 kg/m2 02/05/2025 Encounters Encounter Location Date Provider Diagnosis [facility] [address] [place] [address] 02/05/2025 Rossana Charles Encounter for immunization Z23 ; Type 2 diabetes mellitus with other diabetic kidney complication E11.29 and Visit for screening mammogram Z12.31 Assessments Encounter Date Diagnosis (ICD Code) Assessment Notes Treatment Notes Treatment Clinical Notes Section Notes 02/05/2025 Encounter for immunization (ICD-10 - Z23) 02/05/2025 Type 2 diabetes mellitus with other diabetic kidney complication (ICD-10 - E11.29) Continue current regimen, labs as noted. If A1C still not at goal we will add basal insulin 02/05/2025 Visit for screening mammogram (ICD-10 - Z12.31) 02/05/2025 Other Plan Of Treatment Pending Test Test Name Order Date Mammogram: Screening 02/05/2025 Next Appt Details Follow Up: 3 Months,prn, Sara son: Provider Name:Rossana Bhakta ce, 06/07/2025 03:45:00 PM, [address], [address], [place], [address], Progress Notes * Ivett EDOUARD YDOB:[birth year] (54 yo F)Acc No.[id number]:02/05/2025 Progress Notes Patient: Ivett ACOSTA Provider: PERRY Márquez :1970 A ge:54 Y S ex:Female Date:02/05/2025 Address:[address] [place] [address] [address], [place], [id number] Pcp:Shashank Bush Subjective: * Chief Complaints: * 1 . 2 mo FU & check A1C. * HPI: D iabetes: 2 month FU regarding diabetes, HLD, proteinuria, depression. Following with retina specialist for diabetic retinopathy. Last visit did not require injection and still reports this has been stable Has titrated now to max dose Mounjaro. Still rarely having glucose readings < 150 but does feel that Dexcom has been helpful. Denies s/e a/w medications. Trazodone has been helpful for sleep, just using PRN. Still lots of stressors but feels like mood is stable. Still not smoking Tolerating her return to work following shoulder surgery. * ROS: C ARDIOLOGY: no C hest pain. n o P alpitations. L eg edema?yes, m ore at the end of the day, improved since wearing compression socks during working hours. G ASTROENTEROLOGY: no D iarrhea. n o C onstipation. U ROLOGY: no D ifficulty urinating. n o F requent urination.? 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 * Surgical History: t ubal ligation , cholecystectomy , C-SECTIONS X 2 , Partial hysterectomy 2011, trigger point injections-pain mgmt 2022, Trigger Finger Release Right Hand 10/20/23, lt shoulder rotatory cuff repair 08/2024. * Hospitalization/Major Diagno stic Procedure: a kelly . * Family History: F ather: , diabetes, stroke. M other: 66 yrs, diabetes, hypertension, heart disease. P aternal Grand Father: . P aternal Grand Mother: . M aternal Grand Father: , CANCER. M aternal Grand Mother: , BREAST CANCER. S ibmark anthony: alive, brother-. C jose: alive. 3 brother(s) , 5 sister(s) - healthy. 2 daughter(s) - healthy. . * Social History: R ecreational drug use: no. Exercise: no. Home smoke detector use: yes. Caffeine: yes, frequency:16 OZ QD. Living Will: No. Alcohol: socially. Sexually active: yes. Travel outside [place]: no. Occupation: [employer]. Tobacco Control (Standard) T obacco use: F ormer smoker, H ow long has it been since you last smoked? 6 -12 months. * Medications: T aking Fluticasone Propionate 50 MCG/ACT Suspension 1 spray each nostril twice a day , Notes to Pharmacist: prn, Taking buPROPion HCl ER (XL) 300 MG Tablet Extended Release 24 Hour 1 tab(s) orally every 24 hours , Taking Levocetirizine Dihydrochloride 5 MG Tablet 1 tab(s) orally once a day (in the evening) , Taking Crestor 20 MG Tablet 1 tab(s) orally once a day , Taking metFORMIN HCl ER 500 MG Tablet Extended Release 24 Hour TAKE FOUR TABLETS BY MOUTH ONCE DAILY , Taking Dexcom G7 Dairy Frozen Manager - Device use for CGM and change every 10 days , Notes to Pharmacist: DX: E11.29, Taking Dexcom G7 Sensor - Miscellaneous use for CGM and change every 10 days , Notes to Pharmacist: DX: E11.29, Taking Farxiga 10 MG Tablet TAKE ONE TABLET BY MOUTH ONCE DAILY , Taking Mounjaro 15 MG/0.5ML Solution Auto-injector 15 mg Subcutaneous once a week , Taking traZODone HCl 100 mg Tablet TAKE ONE TABLET BY MOUTH EVERY DAY AT BEDTIME NEEDED FOR INSOMNIA , Medication List reviewed and reconciled with the patient * Allergies: N .K.D.A. Objective: * Vitals: N urse: jl, Pain: 0, Temp: 97.6, RR: 18, HR: 96, BP: 116/74, Ht: 5 ft 6 in, Wt: 193.4, BMI:31.21. * Examination: G eneral Examination: General P leasant and Cooperative, NAD on RA,. Heart: R RR, No m/r/g/h, Nl S1S2, No JVD, 2(+) symmetric pulses. Lungs: L CTAB, No wheezes, crackles or rhonchi, Good air movement,. Neurologic Exam: Alert and oriented x 3. Skin: w ithout acute rashes. Psych N ormal Mood/Affect. Assessment: * Assessment: 1. T ype 2 diabetes mellitus with other diabetic kidney complication - (Primary) ? 2 . E ncounter for immunization - Z23 3 . V isit for screening mammogram - Z12.31 Plan: * Treatment: Value Reference Range S odium 138 136-145 - mmol/L * P otassium 4.0 3.5-5.1 - mmoL/L * C hloride 105 98-107 - mmol/L * C arbon Dioxide 24 22.0-30.0 - mmol/L * A nion Gap 13.0 5-15 - mEq/L * B lood Urea Nitrogen 13 7-17 - mg/dl * C reatinine,Serum 0.50 L 0.52-1.04 - mg/dl * G FR () 155 >60 - ML/MIN * E stimated Glomerular Filt Rate 128 >60 - ml/m in * G lucose 122 H 74-100 - mg/dl * Peggy Barnett 02/07/2025 03: 42:02 PM EDT > pt informedThis lab was reviewed by Peggy Barnett on 02/07/2025 at 15:42 PM EDT ?LAB: M-Hemoglobin A1C* Value Reference Range H emoglobin A1C 6.2 H 4.0-6.0 - % * Peggy Barnett 02/07/2025 03: 42:02 PM EDT > pt informedThis lab was reviewed by Peggy Barnett on 02/07/2025 at 15:42 PM EDT Clinical Notes: Continue current regimen, labs as noted. If A1C still not at goal we will add basalinsulin??2.?Visit for screening mammogram?Imaging: Mammogram: Screening* * Immunizations: PCV-21 (pneumococcal 21-valent conjugate vaccine) : 0.5 mL (Dose No:1) (Route: Intramuscular) given by DANA Rodrigez on Left Deltoid (Encounter for immunization) * Procedure Codes: 9 0684 PCV21 VACCINE IM, 51271 ADMINISTRATION IMMUNIZATION ONE VACCINE * Follow Up: 3 Months,prn * * Sign off status: Completed true * Provider: PERRY Márquez Date: Generated for Eric hutson/Jamison/Cameron on: 04/23/2024 07:55 AM EST History and Physical Notes * Examination Category Sub-Category Detail Notes Category Not es General Examination Heart: RRR, No m/r/ g/h, Nl S1S2, No JVD, 2(+) symmetric pulses Lungs: LCTAB, No wheezes, c rackles or rhonchi, Good air movement, Skin: without acute rashes Neurologic Exam: Alert and oriented x 3 General Pleasant and Coopera tive, NAD on RA, Psych Normal Mood/Affect
--- NOTE | 2025-02-21 07:55 | MM_ITS ---
PROCEDURE INFORMATION: Exam: MG Bilateral Screening 3D Mammography Exam date and time: 02/21/2025 8:06 AM Age: 54 years old Clinical indication: Screening examination TECHNIQUE: Imaging protocol: Bilateral Screening tomosynthesis and 2D mammography including computer-aided detection (CAD) when performed. COMPARISON: 1. MG MM DIG SCREENING MAMM BI W/CAD 11/05/2023 7:56 AM 2. MG MM DIG SCREENING MAMM BI W/CAD 07/27/2022 1:31 PM FINDINGS: MAMMOGRAPHY: Breast composition: There are scattered areas of fibroglandular density. Mass: None. Architectural distortion: None. Calcifications: No suspicious calcifications. Asymmetric density: None. Skin thickening: None. Axillary adenopathy: None. IMPRESSION: No mammographic evidence of malignancy. Annual screening is recommended unless otherwise clinically indicated. ASSESSMENT: BI-RADS Category 1: Negative.
--- OUTSIDE RECORDS SUMMARY | 2025-02-21 07:56 | XMS_ITS | Clinical Summary ---
Author Organization Healthcare Address [address] [id number] Care Team Providers Care Emr Trainer Name Role Phone Shashank Bush MD Primary Care Provider + [phone] Family History Medical History Relation Name Comments [...] of Treatment Not on file Care Teams Emr Trainer Relationship Specialty Start Date End Date Shashank Bush MD [address] [place] [address] [place] [id number] PCP - General 08/30/20
--- OUTSIDE RECORDS SUMMARY | 2025-02-21 07:56 | XMS_ITS | Patient Health Record ---
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 mg/dL Random urine reference range not established. 24 hour urine samples recommended. MICROALB 8.800 0-16.7 mg/L MALBCREAT 17.6 M-Lipid Panel Reviewed date:05/17/2024 04:40:44 PM Interpretation: Performing Lab: Notes/Report: Patient Fasting? 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 [...] Status Risk Notes Problem Diabetic renal disease (857366723) Type 2 diabetes mellitus with other diabetic kidney complication (E11.29) Active confirmed Problem Tobacco user (896291373) Nicotine dependence, unspecified, uncomplicated (F17.200) Active confirmed Problem Paresthesia (finding) (40001149) Paresthesia of skin (R20.2) Active confirmed Problem Proteinuria (75929740) Proteinuria, unspecified (R80.9) Active confirmed Problem Cervical disc disorder (791291975) DDD (degenerative disc disease), cervical (M50.30) Active confirmed Problem Hyperlipidaemia (96553951) HLD (hyperlipidemia) (E78.5) Active confirmed Problem Mammogram - screening (73549322) Visit for screening mammogram (Z12.31) Active confirmed Problem Tobacco use (525947843) Tobacco use disorder (Z72.0) Active confirmed Problem Morbid obesity (784023582) Morbid obesity due to excess calories (E66.01) Active confirmed Problem Insomnia disorder related to another mental disorder (60153942) Psychophysiological insomnia (F51.04) Active confirmed Problem Peripheral edema (66879064) Peripheral edema (R60.9) Active confirmed Problem Microalbuminuria (184044592) Microalbuminuria (R80.9) Active confirmed Problem Reactive depression (38503649) Reactive depression (F32.9) Active confirmed Problem Seasonal allergic rhinitis (843111074) Seasonal allergic rhinitis, unspecified trigger (J30.2) Active confirmed Vital Signs Heart Rate 96 /min 02/05/2025 Temperature 97.6 degrees Fahrenheit 02/05/2025 Blood pressure diastolic 74 mm Hg 02/05/2025 Height 5 ft 6 in in 02/05/2025 Blood pressure systolic 116 mm Hg 02/05/2025 Weight 193.4 lbs 02/05/2025 BMI 31.21 kg/m2 02/05/2025 Encounters Encounter Location Date Provider Diagnosis [facility] [address] [place] [address] 07/22/2024 Provider Migration Type 2 diabetes mellitus with other diabetic kidney complication E11.29 ; Psychophysiological insomnia F51.04 and Tobacco use Z72.0 [facility] [address] [place] [address] 03/27/2024 Rossana Charles Paresthesia of skin R20.2 ; Type 2 diabetes mellitus with other diabetic kidney complication E11.29 ; Pain in right arm M79.601 ; Pain in left arm M79.602 ; HLD (hyperlipidemia) E78.5 ; Reactive depression F32.9 ; Psychophysiological insomnia F51.04 ; Tobacco use Z72.0 and DDD (degenerative disc disease), cervical M50.30 [facility] [address] [place] [address] 07/31/2024 Rossana Charles Acute non-recurrent sinusitis, unspecified location J01.90 and Type 2 diabetes mellitus with other diabetic kidney complication E11.29 [facility] [address] [place] [address] 11/30/2024 Rossana Charles Type 2 diabetes glenna itus with other diabetic kidney complication E11.29 [facility] [address] [place] [address] 02/05/2025 Rossana Charles Encounter for immuni zation Z23 ; Type 2 diabetes mellitus with other diabetic kidney complication E11.29 and Visit for screening mammogram Z12.31 [facility] [address] [place] [address] 05/17/2024 Rossana Araceli Type 2 diabetes glenna itus with other diabetic kidney complication E11.29 [facility] [address] [place], [place] [address] 07/28/2024 Rossana Charles Type 2 diabetes glenna itus with other diabetic kidney complication E11.29 [facility] [address] [address] 10/16/2024 Rossana Araceli Type 2 diabetes glenna itus with other diabetic kidney complication E11.29 [facility] [address] [address] 11/08/2024 [facility] [address] [place] [address] 11/30/2024 Rossana Charlse Type 2 diabetes glenna itus with other diabetic kidney complication E11.29 [facility] [address] [place] [address] 11/30/2024 Rossana Charles Assessments Encounter Date Diagnosis (ICD Code) Assessment Notes Treatment Notes Treatment Clinical Notes Section Notes 05/17/2024 Type 2 diabetes mellitus with other diabetic kidney complication (ICD-10 - E11.29) 07/22/2024 Type 2 diabetes mellitus with other diabetic kidney complication (ICD-10 - E11.29) 03/27/2024 Paresthesia of skin (ICD-10 - R20.2) 07/22/2024 Psychophysiological insomnia (ICD-10 - F51.04) 11/30/2024 [...] of Dexcom if insurance will let coverage. 02/05/2025 Encounter for immunization (ICD-10 - Z23) 11/30/2024 Type 2 diabetes mellitus with other diabetic kidney complication (ICD-10 - E11.29) 10/16/2024 Type 2 diabetes mellitus with other diabetic kidney complication (ICD-10 - E11.29) 07/31/2024 Type 2 diabetes mellitus with other diabetic kidney complication (ICD-10 - E11.29) A1C above 8 but hasn't titrated Mounjaro, will start monthly titration. If A1C not < 7 in 4 months we did discuss starting basal insulin 07/31/2024 Acute non-recurrent sinusitis, unspecified location (ICD-10 - J01.90) 03/27/2024 Type 2 diabetes mellitus with other diabetic kidney complication (ICD-10 - E11.29) Most recently 7.5, down from prior. Goal A1C < 7, she will obtain labs again prior to her next visit with her retina specialist consider trial of Mounjaro? 07/28/2024 Type 2 diabetes mellitus with other [...] sleep 03/27/2024 Psychophysiological insomnia (ICD-10 - F51.04) 03/27/2024 Tobacco use (ICD-10 - Z72.0) may need to lower dose of wellbutrin if side effects develop 07/22/2024 Tobacco use (ICD-10 - Z72.0) 03/27/2024 DDD (degenerative di sc disease), cervical [...] H-CMP 10/10/2014 H-LIPID PANEL 10/10/2014 H-LIPID PANEL 03/31/2010 H-LIPID PANEL 06/14/2017 H-LIPID PANEL 05/15/2009 H-HGBA1C 06/14/2017 H-HGBA1C 10/10/2014 H-TSH 03/31/2010 H-SED RATE 10/10/2014 H-KAI PROFILE 10/10/2014 H-MICROALB/MANAGER BUSINESS INFORMATION UR 06/14/2017 M-Complete Blood Count Auto Diff 019 M-Complete Blood Count Auto Diff 023 M-Comprehensive Metabolic Panel 11/14/19 21 M-Comprehensive Metabolic Panel 01/10/20 19 M-Comprehensive Metabolic Panel 10/15/19 18 M-Comprehensive Metabolic Panel 04/24/19 20 M-Comprehensive Metabolic Panel 09/16/19 19 M-Comprehensive Metabolic Panel 06/05/19 22 M-Comprehensive Metabolic Panel 06/17/19 24 M-Comprehensive Metabolic Panel 03/27/20 24 M-Comprehensive Metabolic Panel 01/16/20 23 M-Comprehensive Metabolic Panel 07/25/19 23 M-Basic Metabolic Panel 06/16/2018 M-Hemoglobin A1C 06/16/2018 M-Hemoglobin A1C 11/13/2020 M-Hemoglobin A1C 10/14/2017 M-Hemoglobin A1C 07/24/2022 M-Hemoglobin A1C 07/08/2020 M-Hemoglobin A1C 03/27/2024 M-Hemoglobin A1C 01/15/2023 M-Hemoglobin A1C 06/17/2023 M-Hemoglobin A1C 06/05/2021 M-Hemoglobin A1C 01/19/2019 M-Hemoglobin A1C 04/24/2019 M-Lipid Panel 06/05/2021 M-Lipid Panel 04/24/2019 M-Lipid Panel 09/15/2018 M-Lipid Panel 06/17/2023 M-Lipid Panel 03/27/2024 M-Lipid Panel 01/15/2023 M-Lipid Panel 07/24/2022 M-Lipid Panel 10/14/2017 M-Lipid Panel 11/13/2020 M-Lipid Panel 01/09/2019 M-Thyroid Stimulating Hormone 01/09/2019 M-Thyroid Stimulating Hormone 09/15/2018 M-Microalb/Creat Ratio, [facility] 024 M-Microalb/Creat Ratio, [facility] Ur 022 M-Microalb/Creat Ratio, [facility] Ur 023 M-Microalb/Creat Ratio, [facility] Ur 020 M-Microalb/Creat Ratio, [facility] Ur 021 M-Microalb/Creat Ratio, [facility] Ur 019 M-Microalb/Creat Ratio, [facility] 018 M-Microalb/Creat Ratio, [facility] Ur 10/14/ 018 M-COVID PCR SINGLE RAPID 11/23/2019 Mammogram: Screening 02/05/2025 Next Appt Details Provider Name:Rossana Bhakta ce, 06/07/2025 03:45:00 PM, [address], [place], [address], Insurance Providers Payer Name Payer Address Payer Phone Subscriber Number Group Number Insured Name Patient Relationship to Insured Coverage Start Date Coverage End Date [employer] [address] [address] [place] [address] [id number] Ivett Love Self - patient is the insured Medications Administered Medication Instructions Date of Administration Dosage Notes Triamcinolone Acetonide 40mg Injection 10/14/2017 1 mL Medical (General) History Medical History History ICD Code type II diabetes with diabetic retinopat hy hypercholestrolemia tobacco use Right shoulder impingement, s/p bicep te ndon injection, Dr Phoenix at Depression Followed by Dr Weston for [employer] care/Mammo gram Right parotid mass Surgical History Surgery Date(Month/Year) tubal ligation cholecystectomy C-SECTIONS X 2 Partial hysterectomy 2011 trigger point injections-pain mgmt 2022 Trigger Finger Release Right Hand 10/20/23 lt shoulder rotatory cuff repair 08/2024 Hospitalization History Reason Date(Month/Year) above
--- OUTSIDE RECORDS SUMMARY | 2025-02-21 07:56 | XMS_ITS | Data Portability ---
Author Organization [facility] Address [address] [facility] [address] [place] [address] Assessment Encounter Date Assessment Date Assessment LastModified [...] the usual fashion. I also used the [facility] monitor for major branches. The facial [...] t NAME: ROBERTO BERNAL ERD PATH. :[phone] [id number] Copy to: Diagn osis: Right perip aroti [...] 09:26 Page 1 of 1 Not Available [facility] [address] [place] [address], [place], [address], 09/18/2022 09:27:03 09/16/19 23 09/10/2022 elect daniella [...] ICD10 Code Diagnosis IMO Codes Diagnosis Note [id number] RICARDO SILVA III, MD SURGERY SCHEDULE [address] [place] [phone] 09/17/2022 12:11:16 09/17/2022 12:12:02 Health Concerns Section Related Observation LastModified by Organization Detai ls LastModified Time None Recorded Concern Status LastModified by Organization Details LastModified Time None Recorded Advance Directives Directive None Recorded Payers Insurance Date Sequence Insurance Name Policy Number Policy Doshi Covered Member ID Doshi Member ID Guarantor Name 09/23/2022 1 [id number] Ivett Love [id number] Ivett Love OBGyn Episode No OBEpisode recorded.
== END 2025-02-21 23:59 | disposition home or self-care (01) ==
LOC: RAD 07:53
PROVIDERS: PCP Nurse Practitioner Family; Visit Provider Nurse Practitioner Family
DX: Z12.31 Encounter for screening mammogram for malignant neoplasm of breast (principal); R92.323 Mammographic fibroglandular density, bilateral breasts
CPT/HCPCS: 77063; 77067